=== PATIENT | female | born 1945 | race Caucasian/White ===

== ENCOUNTER → 2018-05-08 09:51 | Outpatient (CLI) | payer MEDICARE, SELFPAY ==
--- NOTE | 2018-05-08 09:57 | XR_ITS ---
XR DEXA axial skeleton HISTORY: ITS.REASON: OSTEOPOROSIS ORDERING PHYSICIAN: Sriram Ramirez PATIENT AGE: 73 years COMPARISON: 04/11/2016 FINDINGS: The BMD measured at the left femoral neck is .706 g/cm squared with a T score of -2.4. This is considered Osteopenic according to the World Health Organization criteria. Fracture risk is Moderate. Treatment is advised. The hip density has decreased by 0.6% compared to the previous exam. IMPRESSION: Osteopenia with moderate fracture risk. Recommend follow-up exam May 2020
== END ==
PROVIDERS: PCP Internal Medicine Adolescent Medicine; Visit Provider Internal Medicine Nephrology
DX: M81.0 Age-related osteoporosis without current pathological fracture (principal)
CPT/HCPCS: 77080

== ENCOUNTER → 2020-06-08 10:24 | Outpatient (CLI) | payer MEDICARE, SELFPAY ==
--- NOTE | 2020-06-08 10:28 | XR_ITS ---
PROCEDURE: XR DEXA AXIAL SKELETON CLINICAL HISTORY: OSTEOPOROSIS COMPARISON: CR DEXAAX XR DEXA axial skeleton from 05/08/2018 FINDINGS: The right hip BMD is 0.548 with a T-score of -2.7. The left hip BMD is 0.613 with a T-score of -2.1. The right forearm BMD is 0.532 with a T-score of -2.7. Previously the lowest density was in the left femoral neck with T-score of -2.4. Previously the radius 33 percent T-score was -1.5. The bone density is such that less compared to the previous exam IMPRESSION: This patient is considered osteoporotic according to the World Health Organization criteria. Fracture risk is high. Treatment is advised. Based on these results a follow-up exam is recommended in 1 year. Dictated by: Moy Griffin MD 06/09/2020 08:07 Moy Griffin MD in [place] 06/09/2020 08:07
== END ==
PROVIDERS: PCP Internal Medicine Adolescent Medicine; Visit Provider Internal Medicine Nephrology
DX: M81.0 Age-related osteoporosis without current pathological fracture (principal)
CPT/HCPCS: 77080

== ENCOUNTER → 2020-06-13 10:17 | Outpatient (CLI) | payer MEDICARE, SELFPAY ==
[2020-06-13 12:34] LABS: Coronavirus 19 IgG Antibody Negative (Negative); Coronavirus 19 IgM Antibody Negative (Negative)
== END ==
PROVIDERS: Visit Provider Internal Medicine Gastroenterology
DX: Z01.89 Encounter for other specified special examinations (principal); Z12.11 Encounter for screening for malignant neoplasm of colon
CPT/HCPCS: 36415; 86328

== ENCOUNTER 2020-06-15 11:27 | Day surgery (SDC) | payer MEDICARE, SELFPAY ==
[2020-06-09 13:45] VITALS: BMI 24.2
[2020-06-15] VITALS (7 sets, daily range): BP systolic 120–162; BP diastolic 65–87; PULSE 67–77; RESP 18; TEMP 36.3–36.4; O2SAT 94–95
--- NOTE | 2020-06-15 13:23 | P.PN_ITS ---
[facility] Anesthesia Checklist - Structural Data Admitted From: Home Planned Operative Procedure/s: colonoscopy Consent for Planned Operative Procedure(s) Verified: Yes - Airway Assessment C-Spine Mobility Assessed: Yes TMJ Mobility Assessed: Yes Dentition: Good Dentition - Neurological Assessment Level of Consciousness: Awake, Alert, Appropriate - Anesthesia Plan Anesthesia Risk discussed: Yes Anesthesia Plan: Verified ASA Class: III Anesthesia Type: MAC [facility] History I have reviewed the patient's past medical history: Yes Medical History: Reports:: Valvular Heart Disease (mitral) Denies:: Cancer, Diabetes Mellitus Type 1, Diabetes Mellitus Type 2, Internal Pacemaker, MRSA, Seizures *Have you ever received a pneumonia vaccine?: Yes *Have you received a flu vaccine this season?: Yes Anesthesia experience/problems:: none Other Surgeries: No: Pacemaker Amputation: No Fractures: No - *Social History Last grade of school completed: High school graduate Alcohol Intake: never Substance Use Type: denies use *Occupational Status:: retired Household Members: spouse *Travel in the last 8 weeks: None Family Hx:: No significant family history
--- NOTE | 2020-06-15 13:40 | HMH.PROC ---
[facility] Procedure Note Procedure Note:: Colonoscopy Procedure Report: Colonoscopy with cold snare polypectomy Endoscopist: Jh Encarnacion II, MD Referring physician: DHARMESH Lay Date of Procedure: June 15, 2020 Equipment: Olympus 180 variable stiffness pediatric colonoscope Sedation: MAC sedation Indication: Mrs. Amin is a 75-year-old female who is here for follow-up screening/surveillance colonoscopy. She does get some intermittent lower quadrant abdominal pain when she does get constipated. She gets some bloating. She does state that her mother had colon cancer in her 70s. She reports no rectal bleeding or weight loss. Her last colonoscopy in 2008 (Dr. Felipe Sherwood) was normal. Procedure: Prior to the procedure, a history and physical exam was performed, and patient's medications and allergies were reviewed. The risks, benefits and alternatives of the sedation and procedure were discussed with the patient. All questions were answered and informed consent was obtained. The patient was brought to the procedure room. Patient identification and proposed procedure were verified by the physician and the nurse. The patient was placed in a left lateral decubitus position and the scope was passed under direct vision. Throughout the procedure, the patient's blood pressure, pulse, and oxygen saturations were monitored continuously. The colonoscopy was accomplished without difficulty. The patient tolerated the procedure well. Findings: On digital rectal examination there was normal rectal tone. There were no external hemorrhoids. The colonoscope was introduced through the anal canal to the rectum and advanced to the cecum. The ileocecal valve and appendiceal orifice were identified. The scope was advanced a short distance into the ileum which appeared grossly normal. The scope was then withdrawn into the colon. The cecum, ascending and transverse colon and mucosa were grossly normal. There was moderate to marked colonic redundancy. There were 2 colon polyps (descending x1 (4 mm) and sigmoid colon x1 (3 mm)) which were both removed via cold snare polypectomy. There were mildly scattered diverticuli throughout the descending and sigmoid colon (LEFT colon). The rectum itself was normal. Upon retroflexion within the rectum there were grade 1 internal hemorrhoids. The preparation was excellent throughout with Grady Preparation Score of 9. The cecal time was 15 minutes. Impression: 1. Diminutive colonic polyps x2 2. Mild left-sided diverticulosis 3. Moderate colonic redundancy/colonic dysmotility 4. Grade 1 internal hemorrhoids Plan: I am not convinced that the patient will require any further preventive/screening colonoscopy. I will discuss this with the patient and family. I would encourage initiation of a good fiber bowel regimen on a long-term daily maintenance basis.
== END 2020-06-15 14:35 | disposition home or self-care (01) ==
LOC: OUTP 11:28
PROVIDERS: PCP Nurse Practitioner Family; Visit Provider Internal Medicine Gastroenterology
PROC: 0DJD8ZZ Inspection of Lower Intestinal Tract, Via Natural or Artificial Opening Endoscopic (ICD-10-PCS; CPT 45378; principal; 2020-06-15 12:30)
DX: Z12.11 Encounter for screening for malignant neoplasm of colon (principal); K63.5 Polyp of colon; K57.30 Diverticulosis of large intestine without perforation or abscess without bleeding; K64.0 First degree hemorrhoids; Q43.8 Other specified congenital malformations of intestine; I34.9 Nonrheumatic mitral valve disorder, unspecified; Z88.2 Allergy status to sulfonamides; Z88.8 Allergy status to other drugs, medicaments and biological substances; Z79.82 Long term (current) use of aspirin; Z79.899 Other long term (current) drug therapy
CPT/HCPCS: 45385; 88305

== ENCOUNTER → 2020-06-23 08:48 | Outpatient (POV) | payer MEDICARE, SELFPAY | PROVIDERS: Visit Provider Internal Medicine Nephrology | DX: Z00.00 Encounter for general adult medical examination without abnormal findings (principal) ==

== ENCOUNTER → 2021-01-07 11:21 | Outpatient (CLI) | payer MEDICARE, SELFPAY | PROVIDERS: PCP Nurse Practitioner Family; Visit Provider Nurse Practitioner Family | DX: R00.2 Palpitations (principal) | CPT/HCPCS: 93225; 93226 ==

== ENCOUNTER 2021-06-26 18:15 | Emergency (ER) | payer MEDICARE, SELFPAY ==
[2021-06-26] VITALS (11 sets, daily range): BP systolic 92–161; BP diastolic 60–98; PULSE 97–140; RESP 13–22; TEMP 36.9; O2SAT 94–96; BMI 23.3
--- NOTE | 2021-06-26 | ECG_ITS ---
APPROVED REPORT Exam: Resting ECG HR:121 bpm ECG Measurements Heart Rate 121 AXES QRSd 80 QRS -26 QT 326 T 16 QTc 462 Conclusion Atrial fibrillation with rapid ventricular response with premature ventricular or aberrantly conducted complexes Low voltage QRS Abnormal ECG Electronically signed by : Dustin Russell MD 06/27/2021 08:45:57
--- NOTE | 2021-06-26 18:38 | XR_ITS ---
PROCEDURE INFORMATION: Exam: XR Chest Exam date and time: 06/26/2021 6:38 PM Age: 76 years old Clinical indication: Other: A fib; Additional info: A. Fib TECHNIQUE: Imaging protocol: XR of the chest. Views: 2 views. COMPARISON: [facility] CT CHEST W/WO CONTRAST 06/28/2016 9:32 AM FINDINGS: Lungs: In the left lung base there is scarring and atelectasis. No consolidation. Pleural spaces: Unremarkable. No pleural effusion. No pneumothorax. Heart/Mediastinum: Unremarkable. No cardiomegaly. Bones/joints: Unremarkable. IMPRESSION: No acute findings.
[2021-06-26 19:02] LABS: Basophils # 0.2 K/mm3 (0-0.2); Basophils % 2.6 % (0.1-2.0); Eosinophils # 0.3 K/mm3 (0.0-0.4); Eosinophils % 3.3 % (0.1-12.0); Hematocrit 44.9 % (37.0-47.0); Hemoglobin 14.8 g/dL (12.2-16.2); Lymphocytes # 3.6 K/mm3 (0.7-4.5); Mean Corpuscular HGB Conc 32.9 g/dL (31.8-35.4); Mean Corpuscular Hemoglobin 30.4 pg (27.0-31.2); Mean Corpuscular Volume 92.4 fl (81-99); Mean Platelet Volume 8.2 fl (7.4-10.4); Monocytes # 0.4 K/mm3 (0.1-1.0); Monocytes % 5.7 % (1.7-9.3); Neutrophils # 3.1 K/mm3 (1.8-7.8); Neutrophils % 40.4 % (37.0-80.0); Platelet Count 319 K/mm3 (142-424); Red Blood Count 4.86 M/mm3 (4.20-5.40); Red Cell Distribution Width 13.6 % (11.5-17.5); White Blood Count 7.6 K/mm3 (4.8-10.8)
[2021-06-26 19:17] LABS: Chloride 108 mmol/L (98-107)
[2021-06-26 19:18] LABS: Potassium 4.1 mmoL/L (3.5-5.1); Sodium 143 mmol/L (136-145)
[2021-06-26 19:20] LABS: Blood Urea Nitrogen 12 mg/dl (7-17)
[2021-06-26 19:21] LABS: Alanine Aminotransferase 18 U/L (12-78); Albumin Level 4.1 g/dl (3.5-5.0); Albumin/Globulin Ratio 1.3 (1.1-1.8); Alkaline Phosphatase 83 U/L (38-126); Anion Gap 15.1 mEq/L (5-15); Aspartate Amino Transferase 30 U/L (14-36); Calcium 9.6 mg/dl (8.4-10.2); Carbon Dioxide 24 mmol/L (22.0-30.0); Creatinine Clearance Estimated 45 mL/min (50-200); Estimated Glomerular Filt Rate 81 ml/min (>60); GFR (African American) 98 ML/MIN (>60); Globulin 3.1 g/dL (1.3-3.2); Glucose 107 mg/dl (74-100); Total Protein,Serum 7.2 g/dl (6.3-8.2)
[2021-06-26 19:22] LABS: Bilirubin,Total 0.1 mg/dl (0.2-1.3)
[2021-06-26 19:41] LABS: Troponin I < 0.01 ng/ml (0.00-0.034)
[2021-06-26 20:12] LABS: Phosphorous 3.9 mg/dl (2.5-4.5)
--- NOTE | 2021-06-26 20:24 | HMH.EDGENADL ---
ED Disposition Clinical Impression: Atrial fibrillation Qualifiers: Atrial fibrillation type: paroxysmal Qualified Code(s): I48.0 - Paroxysmal atrial fibrillation Disposition: Home, Self-Care Condition on Discharge: Fair Instructions: DI for Atrial Fibrillation Additional Instructions: You have been evaluated for palpitations, diagnosed with atrial fibrillation. It is very important that you continue taking Xarelto and flecainide as prescribed. Also continue taking your antihypertensive medication, metoprolol. 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 Return to the emergency department at once for any new or worsening symptoms, chest pain, shortness of breath, other concerns. Prescriptions: Cetirizine HCl 10 mg PO DAILY #30 tab Transmission Status: Pending to [facility] Referrals: Dustin Russell MD [Primary Care Provider] - Time of Disposition: 00:19 - Critical Care Critical Care Time: No Attestation: On 06/26/21, the high probability of a clinically significant, sudden or life threatening deterioration of the following system(s) required my full and direct attention, intervention and personal management. The time I documented below is in addition to time spent performing reported procedures but includes the following listed in this critical care notation. Medical Decision Making - Medical Records Medical records reviewed: Yes: I reviewed the patient's medical records. - Ari Inquiry Pt receiving controlled substance: No Vital Signs: 06/26/21 18:15 06/26/21 19:19 06/26/21 19:31 Temperature 98.4 F Temperature Source Oral Pulse Rate 99 H 132 H Pulse Rate [Right Radial] 135 H Respiratory Rate 13 20 20 Blood Pressure 121/78 116/80 Blood Pressure [Right Arm] 161/91 H Blood Pressure Mean 92 93 Blood Pressure Mean [Right Arm] 114 Blood Pressure Source Blood Pressure Source [Right Arm] Automatic Cuff Blood Pressure Position Blood Pressure Position [Right Arm] Sitting 02 Sat by Pulse Oximetry 95 95 96 Oxygen Delivery Method Room Air 06/26/21 20:10 06/26/21 20:31 06/26/21 20:50 Temperature Temperature Source Pulse Rate 120 H 121 H 137 H Pulse Rate [Right Radial] Respiratory Rate 18 18 Blood Pressure 130/98 H 116/85 116/85 Blood Pressure [Right Arm] Blood Pressure Mean 108 99 Blood Pressure Mean [Right Arm] Blood Pressure Source Automatic Cuff Blood Pressure Source [Right Arm] Blood Pressure Position Sitting Blood Pressure Position [Right Arm] 02 Sat by Pulse Oximetry 95 94 L Oxygen Delivery Method 06/26/21 21:01 06/26/21 21:32 06/26/21 22:20 Temperature Temperature Source Pulse Rate 114 H 140 H 116 H Pulse Rate [Right Radial] Respiratory Rate 20 16 22 Blood Pressure 109/74 L 92/64 L 113/65 Blood Pressure [Right Arm] Blood Pressure Mean 85 73 Blood Pressure Mean [Right Arm] Blood Pressure Source Blood Pressure Source [Right Arm] Blood Pressure Position Blood Pressure Position [Right Arm] 02 Sat by Pulse Oximetry 95 96 94 L Oxygen Delivery Method 06/26/21 23:00 06/26/21 23:30 Temperature Temperature Source Pulse Rate 130 H 97 H Pulse Rate [Right Radial] Respiratory Rate 17 22 Blood Pressure 121/87 107/60 L Blood Pressure [Right Arm] Blood Pressure Mean Blood Pressure Mean [Right Arm] Blood Pressure Source Blood Pressure Source [Right Arm] Blood Pressure Position Blood Pressure Position [Right Arm] 02 Sat by Pulse Oximetry 95 95 Oxygen Delivery Method - Lab Data Lab Results 06/26/21 18:54: WBC 7.6, RBC 4.86, Hgb 14.8, Hct 44.9, MCV 92.4, MCH 30.4, MCHC 32.9, RDW 13.6, Plt Count 319, MPV 8.2, Neut % (Auto) 40.4, Lymph % (Auto) 48.0, [place] % (Auto) 5.7, Eos % (Auto) 3.3, Baso % (Auto) 2.6 H, Neut # (Auto) 3.1, Lymph # (Auto) 3.6, [place] # (Auto) 0.4, Eos # (Auto) 0.3, Baso # (Auto) 0.2 06/26/21 18:54: Sodium 143, Potassium 4.1, Chlo
[2021-06-26 20:56] LABS: Thyroid Stimulating Hormone 2.66 uIU/mL (0.465-4.68)
--- NOTE | 2021-06-26 21:11 | PC.NURSE ---
SPOKE WITH JOHN DON: NEED FOR TROPONIN REDRAW. WILL BE DOWN TO COLLECT.
[2021-06-26 22:09] LABS: Troponin I < 0.01 ng/ml (0.00-0.034)
[2021-06-27 00:19] VITALS: BP 126/88; PULSE 113; RESP 17; TEMP 36.2; O2SAT 98
--- NOTE | 2021-06-27 00:24 | PC.NURSE ---
addendum to discharge: prescribed zyrtec
== END 2021-06-27 00:31 | disposition home or self-care (01) ==
PROVIDERS: Emergency Medicine; Emergency Provider Emergency Medicine; PCP Internal Medicine Adolescent Medicine
DX: I48.0 Paroxysmal atrial fibrillation (principal); R00.2 Palpitations; I10 Essential (primary) hypertension; Z88.2 Allergy status to sulfonamides; Z88.8 Allergy status to other drugs, medicaments and biological substances
CPT/HCPCS: 36415; 71046; 80053; 83735; 84100; 84443; 84484; 85025; 93005; 96375; 99283

== ENCOUNTER → 2021-07-13 09:23 | Outpatient (CLI) | payer MEDICARE, SELFPAY ==
--- NOTE | 2021-07-13 09:26 | XR_ITS ---
PROCEDURE: XR DEXA AXIAL SKELETON CLINICAL HISTORY: OSTEOPOROSIS COMPARISON: CR DEXAAX XR DEXA axial skeleton from 05/08/2018 FINDINGS: The right hip BMD is 0.533 with a T-score of -2.8. The left hip BMD is 0.673 with a T-score of -2.2. The lumbar spine BMD is 1.036 with a T-score of -0.1. Radius 33 percent is 0.549 with T-score of -2.4. Previously the lowest density was at the left femoral neck with a T-score of -2.4 IMPRESSION: This patient is considered osteoporotic according to the World Health Organization criteria. Fracture risk is high. Treatment is advised. Based on these results a follow-up exam is recommended in 1 year. Dictated by: Moy Griffin MD 07/13/2021 12:24 Moy Griffin MD in [place] 07/13/2021 12:24
== END ==
PROVIDERS: PCP Internal Medicine Adolescent Medicine; Visit Provider Internal Medicine Nephrology
DX: M81.0 Age-related osteoporosis without current pathological fracture (principal)
CPT/HCPCS: 77080

== ENCOUNTER → 2021-08-09 12:38 | Outpatient (POV) | payer MEDICARE, SELFPAY | PROVIDERS: Visit Provider Internal Medicine Nephrology | DX: Z00.00 Encounter for general adult medical examination without abnormal findings (principal) ==

== ENCOUNTER → 2022-07-15 08:56 | Outpatient (CLI) | payer MEDICARE, SELFPAY ==
--- NOTE | 2022-07-15 09:02 | XR_ITS ---
FINAL REPORT TECHNIQUE: Bone densitometry calculations of the lumbar spine and left hip were obtained. CLINICAL HISTORY: . osteoporosis COMPARISON: 06/08/2020 FINDINGS: Using L1-4, the bone mineral density of the spine is 1 1.033 g/cm2, corresponding to T-score of the -0.1. Using the left hip, the bone mineral density of the femoral neck is 0.691 g/cm2, was 0.613 corresponding to a T-score of -2.1, was -2.0. Using the right hip, the bone mineral density of the femoral neck is 0.547 g/cm2, was 0.548 corresponding to a T-score of -2.7, was -2.7. Using the 1/3 radius, the bone mineral density is 0.507 g/cm2, was 0.532 corresponding to a T-score of -3.1, was -2.7. NOTE: T-score: Standard deviation compared with peak bone mass of young adult mean. *Following the recommendations of the International Society of Bone densitometry, classification of hip BMD is based on the lower of two T-scores; total hip or femoral neck. IMPRESSION: Diminished bone mineral density of the right hip and 1/3 radius consistent with osteoporosis. Diminished bone or neural density of the left hip consistent with osteopenia. Normal bone mineral density of the lumbar spine which is likely falsely elevated secondary to hypertrophic change. FRAX not reported because some of the T-scores are at or below -2.5. Reviewed, Interpreted and Dictated by Sriram Gonzalez MD Transcribed by Concetta Andrew Authenticated and [facility]
== END ==
PROVIDERS: PCP Internal Medicine Adolescent Medicine; Visit Provider Internal Medicine Nephrology
DX: M81.0 Age-related osteoporosis without current pathological fracture (principal)
CPT/HCPCS: 77080

== ENCOUNTER → 2022-09-22 16:25 | Outpatient (CLI) | payer MEDICARE, SELFPAY ==
[2022-09-22 18:16] LABS: Albumin Level 4.1 g/dl (3.5-5.0); Anion Gap 7.7 mEq/L (5-15); Blood Urea Nitrogen 14 mg/dl (7-17); Calcium 9.4 mg/dl (8.4-10.2); Carbon Dioxide 30 mmol/L (22.0-30.0); Chloride 103 mmol/L (98-107); Estimated Glomerular Filt Rate 60 ml/min (>60); GFR (African American) 73 ML/MIN (>60); Glucose 74 mg/dl (74-100); Phosphorous 3.9 mg/dl (2.5-4.5); Potassium 4.7 mmoL/L (3.5-5.1); Sodium 136 mmol/L (136-145)
[2022-09-27 16:39] LABS: Tandem-R Ostase 15.4 ug/L (.)
[2022-09-29 21:00] LABS: C-Telopeptide Serum 228 pg/mL (.)
== END ==
PROVIDERS: PCP Internal Medicine Adolescent Medicine; Visit Provider Internal Medicine Nephrology
DX: M81.0 Age-related osteoporosis without current pathological fracture (principal)
CPT/HCPCS: 36415; 80069; 82306; 82523; 84080

== ENCOUNTER → 2022-10-03 09:59 | Outpatient (POV) | payer MEDICARE, SELFPAY | PROVIDERS: Visit Provider Internal Medicine Nephrology | DX: Z00.00 Encounter for general adult medical examination without abnormal findings (principal) ==

== ENCOUNTER 2022-11-27 23:42 | Inpatient (IN) | payer MEDICARE, SELFPAY ==
[2022-11-27 23:42] VITALS: BP 150/70; PULSE 72; RESP 17; TEMP 37.2; O2SAT 92; BMI 22.1
[2022-11-27 23:48] VITALS: BMI 22.3
--- NOTE | 2022-11-27 23:49 | XR_ITS ---
PROCEDURE INFORMATION: Exam: XR Chest Exam date and time: 11/28/2022 12:08 AM Age: 77 years old Clinical indication: Injury or trauma; Fall TECHNIQUE: Imaging protocol: Radiologic exam of the chest. Views: 1 view. COMPARISON: CR XR CHEST 2V 06/26/2021 6:52 PM FINDINGS: Lungs: Normal pulmonary vessels. Minimal patchy density left lower lobe likely atelectasis. Pleural spaces: Unremarkable. No pleural effusion. No pneumothorax. Heart/Mediastinum: Cardiac silhouette is normal. Pacer wires. Bones/joints: Unremarkable. IMPRESSION: 1. Cardiac silhouette is normal. Pacer wires. 2. Normal pulmonary vessels. 3. Minimal patchy density left lower lobe likely atelectasis.
--- NOTE | 2022-11-27 23:49 | XR_ITS ---
PROCEDURE INFORMATION: Exam: XR Left Hip Exam date and time: 11/28/2022 12:08 AM Age: 77 years old Clinical indication: Injury or trauma; Fall TECHNIQUE: Imaging protocol: Radiologic exam of the left hip. Views: 2 or 3 views hip with pelvis when performed. COMPARISON: No relevant prior studies available. FINDINGS: Bones/joints: Displaced left femoral neck fracture. Spine fixation hardware. Soft tissues: Unremarkable. IMPRESSION: Displaced left femoral neck fracture.
--- NOTE | 2022-11-27 23:49 | CT_ITS ---
PROCEDURE INFORMATION: Exam: CT Cervical Spine Without Contrast Exam date and time: 11/28/2022 12:11 AM Age: 77 years old Clinical indication: Injury or trauma; Fall TECHNIQUE: Imaging protocol: Computed tomography of the cervical spine without contrast. Radiation optimization: All CT scans at this facility use at least one of these dose optimization techniques: automated exposure control; mA and/or kV adjustment per patient size (includes targeted exams where dose is matched to clinical indication); or iterative reconstruction. REPORTING DATA: Count of CT and Cardiac NM exams in prior 12 months: This patient has received 2 known CTs and 0 known cardiac nuclear medicine studies in the 12 months prior to the current study. COMPARISON: NECKWWO CT SOFT TISS.NECK W/WO CONT 01/19/2016 1:17 PM FINDINGS: Bones/joints: No acute fracture. Facets are normally aligned. Multilevel degenerative facet arthropathy. Straightening of the normal cervical lordosis. Multilevel degenerative disc disease, most notable at C5-C6 and C6-C7. No significant central canal stenosis. Lungs: No acute findings in the visualized lung apices. Pleural spaces: Persistent apical pleural thickening on the right. Soft tissues: No acute findings. IMPRESSION: 1. No acute findings. 2. Multilevel degenerative changes.
--- NOTE | 2022-11-27 23:49 | CT_ITS ---
PROCEDURE INFORMATION: Exam: CT Head Without Contrast Exam date and time: 11/28/2022 12:08 AM Age: 77 years old Clinical indication: Injury or trauma; Fall TECHNIQUE: Imaging protocol: Computed tomography of the head without contrast. Radiation optimization: All CT scans at this facility use at least one of these dose optimization techniques: automated exposure control; mA and/or kV adjustment per patient size (includes targeted exams where dose is matched to clinical indication); or iterative reconstruction. REPORTING DATA: Count of CT and Cardiac NM exams in prior 12 months: This patient has received 2 known CTs and 0 known cardiac nuclear medicine studies in the 12 months prior to the current study. COMPARISON: NECKWWO CT SOFT TISS.NECK W/WO CONT 01/19/2016 1:17 PM FINDINGS: Brain: Age related atrophic changes in the brain. No mass effect or midline shift. No intracranial hemorrhage. No intracranial edema. No evidence of acute territorial ischemia. No significant white matter disease. Cerebral ventricles: No ventriculomegaly. Paranasal sinuses: No acute findings. No fluid levels. Mastoid air cells: No significant mastoid effusion. Bones/joints: No acute fracture. Soft tissues: No acute findings. IMPRESSION: No acute intracranial findings.
[2022-11-27 23:58] LABS: Basophils # 0.1 K/mm3 (0-0.2); Basophils % 1.2 % (0.1-2.0); Chloride 104 mmol/L (98-107); Eosinophils # 0.2 K/mm3 (0.0-0.4); Eosinophils % 2.2 % (0.1-12.0); Hematocrit 42.8 % (37.0-47.0); Lymphocytes # 3.2 K/mm3 (0.7-4.5); Lymphocytes % 41.5 % (10-50); Mean Corpuscular HGB Conc 32.8 g/dL (31.8-35.4); Mean Corpuscular Hemoglobin 29.5 pg (27.0-31.2); Mean Platelet Volume 7.9 fl (7.4-10.4); Monocytes # 0.4 K/mm3 (0.1-1.0); Monocytes % 5.8 % (1.7-9.3); Neutrophils # 3.8 K/mm3 (1.8-7.8); Neutrophils % 49.4 % (37.0-80.0); Platelet Count 277 K/mm3 (142-424); Red Blood Count 4.75 M/mm3 (4.20-5.40); Red Cell Distribution Width 14.1 % (11.5-17.5); Sodium 138 mmol/L (136-145); White Blood Count 7.7 K/mm3 (4.8-10.8)
[2022-11-27 23:59] LABS: Potassium 3.6 mmoL/L (3.5-5.1)
[2022-11-28] VITALS (11 sets, daily range): BP systolic 99–150; BP diastolic 45–98; PULSE 60–80; RESP 16–20; TEMP 36.6–37.2; O2SAT 89–97; BMI 22.9
[2022-11-28 00:01] LABS: Alanine Aminotransferase 27 U/L (12-78); Albumin Level 4.3 g/dl (3.5-5.0); Albumin/Globulin Ratio 1.4 (1.1-1.8); Alkaline Phosphatase 106 U/L (38-126); Anion Gap 9.6 mEq/L (5-15); Aspartate Amino Transferase 47 U/L (14-36); Bilirubin,Total 0.6 mg/dl (0.2-1.3); Blood Urea Nitrogen 20 mg/dl (7-17); Carbon Dioxide 28 mmol/L (22.0-30.0); Creatinine Clearance Estimated 42 mL/min (50-200); Estimated Glomerular Filt Rate 53 ml/min (>60); GFR (African American) 65 ML/MIN (>60); Globulin 3.1 g/dL (1.3-3.2); Total Protein,Serum 7.4 g/dl (6.3-8.2)
[2022-11-28 00:02] LABS: Calcium 9.4 mg/dl (8.4-10.2); Glucose 112 mg/dl (74-100)
--- NOTE | 2022-11-28 00:04 | CT_ITS ---
PROCEDURE INFORMATION: Exam: CT Left Lower Extremity Without Contrast, Hip Exam date and time: 11/28/2022 12:14 AM Age: 77 years old Clinical indication: Injury or trauma; Fall TECHNIQUE: Imaging protocol: CT of the left lower extremity without contrast was performed. Exam focused on the hip. Radiation optimization: All CT scans at this facility use at least one of these dose optimization techniques: automated exposure control; mA and/or kV adjustment per patient size (includes targeted exams where dose is matched to clinical indication); or iterative reconstruction. REPORTING DATA: Count of CT and Cardiac NM exams in prior 12 months: This patient has received 2 known CTs and 0 known cardiac nuclear medicine studies in the 12 months prior to the current study. COMPARISON: CR XR HIP LT 2-3V W/PELVIS 11/28/2022 12:08 AM FINDINGS: Bones/joints: Displaced left femoral neck fracture. Soft tissues: Normal. Reproductive: Calcified fibroid IMPRESSION: Displaced left femoral neck fracture.
[2022-11-28 00:27] LABS: Coronavirus 19, PCR Not Detected (NotDetected); Influenza A, PCR Not Detected (NotDetected); Influenza B, PCR Not Detected (NotDetected)
--- NOTE | 2022-11-28 00:32 | HMH.EDFALL ---
Discharge Plan Disposition Patient Disposition: Admitted As Inpatient Chief Complaint: Fall Prescriptions Prescriptions: No Action cetirizine 10 MG tablet 10 mg PO DAILY Qty: 30 0RF atorvastatin 20 MG tablet 20 mg PO HS meloxicam 15 MG tablet 15 mg PO DAILY amlodipine 5 MG tablet 2.5 mg PO DAILY aspirin 81 MG tablet,delayed release (DR/EC) 81 mg PO DAILY esomeprazole magnesium 40 MG capsule,delayed release(DR/EC) 40 mg PO DAILY levothyroxine 125 MCG tablet 125 mcg PO DAILY cholecalciferol (vitamin D3) 50 MCG tablet 25 mcg PO DAILY cyanocobalamin (vitamin B-12) 5,000 MCG tablet,disintegrating 1,000 mcg PO DAILY Referrals Follow up/Referrals: Dustin Russell MD [Primary Care Provider] - See instructions Clinical Impressions Clinical Impression: Closed hip fracture, Atrial fibrillation Discharge ED Provider: Albaro (ED)Lex HPI General Chief Complaint: Fall Stated Complaint: fall Time Seen by Provider: 11/28/22 00:32 Mode of Arrival: EMS Source of Information: Patient, EMS and Medical Record Limitations: Physical Limitations Description of Symptoms (Recalled from ER Triage Doc. by RN): pt to ED with pain to left hip after falling onto her stairs while trying to bring water to her dogs. pt reports she missed the last stair and fell onto her back. pt denies any head/neck injury or LOC. pt does take eliquis daily. History of Present Illness HPI Narrative: trip type fall with acute lt hip injury w/o loc - has hx of a fib and on eliquis and last dose monday am 0900- also has pacemaker for gricelda/tachy syndrome complaint: fall Onset (ago): hour(s) Fall from: standing Fall witnessed: no Place fall occurred: home Loss of consciousness: none Prolonged down time: no Context: tripped/slipped Location of injury - extremities: Left: thigh Severity: moderate Related Data Home Medications Medication Instructions Recorded Confirmed amlodipine 5 mg tablet 2.5 mg PO DAILY bp 06/09/20 06/09/20 aspirin 81 mg tablet,delayed 81 mg PO DAILY Blood thinner 06/09/20 06/09/20 release atorvastatin 20 mg tablet 20 mg PO HS Cholesterol 06/09/20 06/09/20 cholecalciferol (vitamin D3) 50 25 mcg PO DAILY Supplement 06/09/20 06/09/20 mcg (2,000 unit) tablet cyanocobalamin (vitamin B-12) 1,000 mcg PO DAILY Supplement 06/09/20 06/09/20 5,000 mcg disintegrating tablet esomeprazole magnesium 40 mg 40 mg PO DAILY ACID REFLUX' 06/09/20 06/09/20 capsule,delayed release levothyroxine 125 mcg tablet 125 mcg PO DAILY DAILY 06/09/20 06/09/20 meloxicam 15 mg tablet 15 mg PO DAILY Arthritis 06/09/20 06/09/20 Previous Rx's Medication Instructions Recorded cetirizine 10 mg tablet 10 mg PO DAILY #30 tabs 06/27/21 Allergies Allergy/AdvReac Type Severity Reaction Status Date / Time diclofenac Allergy Intermediate Rash Verified 06/09/20 13:46 phenobarbital [PHENOBARBITAL] Allergy Unknown Verified 06/26/21 20:21 Sulfa (Sulfonamide Allergy Unknown Verified 06/09/20 13:46 Antibiotics) [facility] Disclaimer: The information contained in this section may have been updated after the patient was seen, as this information can be updated by other users. Social History Smoking Status: Never smoker alcohol intake: never substance use type: denies use current occupational status: retired Travel in the last 8 weeks: None household members: spouse caffeine: No ROS Obtained: Yes All systems reviewed & no additional complaints except as documented Physical Exam General General appearance: alert Head Head exam: normocephalic Eye Eye exam: Present PERRL and EOMI ENT ENT exam: Present mucous membranes moist Neck Neck exam: Absent trachea midline Chest Chest inspection: Present normal inspection Respiratory Respiratory exam: Absent respiratory distress Cardiovascular Cardiovascular exam: Present regular rate, systolic murmur and +S4
[2022-11-28 00:37] LABS: Microscopic, Urine URINE MICROSCOPIC (MICROSCOPIC)
[2022-11-28 00:46] LABS: Appearance,Urine CLEAR (Clear); Bilirubin,Urine Negative (Negative); Blood, Urine Negative (Negative); Color,Urine YELLOW (Yellow); Glucose,Urine (UA) Negative (Negative); Ketones,Urine Negative (Negative); Leukocyte Esterase,Urine Negative (Negative); Nitrate,Urine Negative (Negative); PH,Urine 5.5 (5.0-8.5); Protein,Urine Negative (Negative); Urobilinogen,Urine 0.2 EU/dl (0.2)
--- NOTE | 2022-11-28 00:50 | PC.NURSE ---
Dr. Irvin at
--- NOTE | 2022-11-28 00:51 | PC.NURSE ---
Dr. Arthur pagegonzález
[2022-11-28 01:20] LABS: Bacteria,Urine Trace /lpf; Calcium Oxalate Crystals,Urine Trace /lpf; Squamous Epithelial Cell,Urine Occasional #/hpf (0-5)
--- NOTE | 2022-11-28 01:37 | ECG_ITS ---
APPROVED REPORT Exam: Resting ECG HR:66 bpm ECG Measurements Heart Rate 66 AXES OR 202 P 170 QRSd 94 QRS 3 QT 408 T 41 QTc 421 Conclusion ELECTRONIC ATRIAL PACEMAKER LOW QRS VOLTAGE IN PRECORDIAL LEADS [QRS DEFLECTION < 1.0 mV IN CHEST LEADS] ABNORMAL RHYTHM ECG UNCONFIRMED REPORT Electronically signed by : Dustin Russell MD 11/29/2022 03:05:25
--- NOTE | 2022-11-28 01:38 | PC.NURSE ---
fortunato on phone with hospitalist
--- NOTE | 2022-11-28 01:45 | PC.NURSE ---
Pt assigned to room 211 at this time
--- NOTE | 2022-11-28 02:12 | PC.NURSE ---
PT ARRIVED TO FLOOR AT THIS TIME
--- NOTE | 2022-11-28 04:26 | EXP.HP ---
History of Present Illness *Admission Date: 11/28/22 *Reason for visit:: Fall *History of present illness: This is a 77-year-old female with past medical history of atrial fibrillation on Eliquis presents emergency department today with complaints of left hip pain after mechanical fall. She reports missing a step striking her left hip. She reports immediate pain and inability to ambulate afterwards. She denies any chest pain, shortness of breath, dizziness or palpitations prior to the fall. She reports taking her last dose of Eliquis at 9 AM Monday morning. Trauma work-up negative except for left Displaced femoral neck fracture. She will be admitted to the hospital service for orthopedics consultation. [facility] Disclaimer: The information contained in this section may have been updated after the patient was seen, as this information can be updated by other users. Medical History GERD (gastroesophageal reflux disease) Osteoarthritis Osteoporosis Pacemaker Family History (Updated 11/28/22 @ 02:54 by Darlene Mathew RN) Afib Pacemaker Social History (Updated 11/28/22 @ 02:56 by Darlene Mathew RN) Smoking Status: Never smoker alcohol intake: never substance use type: denies use current occupational status: retired Travel in the last 8 weeks: None household members: spouse caffeine: No Review of Systems Review of Systems Review of systems:: pertinent systems reviewed and negative unless documented below *Musculoskeletal Musculoskeletal: Reports deformity and Reports limited range of motion Comments: LLE shortened and rotated Meds Home Medications and Allergies Home Medications Medication Instructions Recorded Confirmed Type atorvastatin 20 mg tablet 20 mg PO HS Cholesterol 06/09/20 11/28/22 History cholecalciferol (vitamin D3) 50 25 mcg PO DAILY Supplement 06/09/20 11/28/22 History mcg (2,000 unit) tablet cyanocobalamin (vitamin B-12) 1,000 mcg PO DAILY Supplement 06/09/20 11/28/22 History 5,000 mcg disintegrating tablet levothyroxine 125 mcg tablet 125 mcg PO DAILY Thyroid 06/09/20 11/28/22 History amlodipine 2.5 mg tablet 2.5 mg PO DAILY High blood pressure 11/28/22 11/28/22 History apixaban 5 mg tablet (Eliquis) 5 mg PO BID Blood thinner - Afib 11/28/22 11/28/22 History citalopram 20 mg tablet 20 mg PO DAILY Anxiety 11/28/22 11/28/22 History flecainide 50 mg tablet 50 mg PO Q12 Heart rhythm 11/28/22 11/28/22 History metoprolol succinate 25 mg 25 mg PO DAILY Heart rate control 11/28/22 11/28/22 History tablet,extended release 24 hr New Prescriptions to Start Prescriptions: Allergies Allergy/AdvReac Type Severity Reaction Status Date / Time diclofenac Allergy Intermediate Rash Verified 06/09/20 13:46 phenobarbital [PHENOBARBITAL] Allergy Unknown Verified 06/26/21 20:21 rivaroxaban [From Xarelto] Allergy Unknown Verified 11/28/22 02:39 Sulfa (Sulfonamide Allergy Unknown Verified 06/09/20 13:46 Antibiotics) Exam Data for Last 24 hours Vital signs and Labs for Last 24 Hours: Temp Pulse Resp BP Pulse Ox 98.3 F 77 18 103/71 L 94 L 11/28/22 02:31 11/28/22 02:31 11/28/22 02:31 11/28/22 02:31 11/28/22 02:31 Laboratory Results - last 24 hr 11/27/22 23:47: WBC 7.7, RBC 4.75, Hgb 14.0, Hct 42.8, MCV 90.0, MCH 29.5, MCHC 32.8, RDW 14.1, Plt Count 277, MPV 7.9, Neut % (Auto) 49.4, Lymph % (Auto) 41.5, [place] % (Auto) 5.8, Eos % (Auto) 2.2, Baso % (Auto) 1.2, Neut # (Auto) 3.8, Lymph # (Auto) 3.2, [place] # (Auto) 0.4, Eos # (Auto) 0.2, Baso # (Auto) 0.1 11/27/22 23:47: Sodium 138, Potassium 3.6, Chloride 104, Carbon Dioxide 28, Anion Gap 9.6, BUN 20 H, Creatinine 1.00, Estimated Creat Clear 42, Estimated GFR 53 L, Est GFR ( Amer) 65, Glucose 112 H, Calcium 9.4, Total Bilirubin 0.6, AST 47 H, ALT 27, Alkaline Phosphatase 106, Total Protein 7.4, Albumin 4.3, Globulin 3.1, Albumin/Globulin Ratio 1.4
[2022-11-28 06:30] LABS: Basophils % 0.2 % (0.1-2.0); Eosinophils # 0.1 K/mm3 (0.0-0.4); Eosinophils % 0.7 % (0.1-12.0); Hematocrit 39.7 % (37.0-47.0); Hemoglobin 12.9 g/dL (12.2-16.2); Lymphocytes # 1.2 K/mm3 (0.7-4.5); Lymphocytes % 9.8 % (10-50); MANUAL DIFFERENTIAL MANUAL DIFFERENTIAL (MANUAL DIFF); Mean Corpuscular HGB Conc 32.6 g/dL (31.8-35.4); Mean Corpuscular Hemoglobin 29.5 pg (27.0-31.2); Mean Corpuscular Volume 90.6 fl (81-99); Mean Platelet Volume 7.9 fl (7.4-10.4); Monocytes # 0.5 K/mm3 (0.1-1.0); Monocytes % 4.2 % (1.7-9.3); Neutrophils # 10.8 K/mm3 (1.8-7.8); Neutrophils % 85.1 % (37.0-80.0); Platelet Count 232 K/mm3 (142-424); Red Blood Count 4.38 M/mm3 (4.20-5.40); Red Cell Distribution Width 14.1 % (11.5-17.5); White Blood Count 12.7 K/mm3 (4.8-10.8)
[2022-11-28 06:39] LABS: Blood Urea Nitrogen 18 mg/dl (7-17); Calcium 8.2 mg/dl (8.4-10.2); Carbon Dioxide 26 mmol/L (22.0-30.0); Chloride 107 mmol/L (98-107); Creatinine Clearance Estimated 44 mL/min (50-200); Estimated Glomerular Filt Rate 69 ml/min (>60); GFR (African American) 84 ML/MIN (>60); Glucose 124 mg/dl (74-100); Potassium 3.6 mmoL/L (3.5-5.1)
[2022-11-28 06:45] LABS: Anion Gap 9.6 mEq/L (5-15); Sodium 139 mmol/L (136-145)
[2022-11-28 07:12] LABS: Lymphocytes % 8 % (10-50); Monocytes % 6 % (2-9); Neutrophils % 86 % (42-76); Platelet Estimate Normal; RBC Morphology Normal; Total Cells Counted 100
--- NOTE | 2022-11-28 08:13 | HMH.PHAINT1 ---
Pharmacy Intervention Comments: Reconciled patient's medications using pharmacy fill history
--- NOTE | 2022-11-28 08:35 | CA_ITS ---
APPROVED REPORT EXAM: Comprehensive 2D, Doppler, and color-flow Echocardiogram Tip Inserter: Marely Little RVT Ht: 5 ft 4 in Wt: 134lbs BSA: 1.65 BP: 103/71 mmHg Indications: PRE-OP LT HIP FX,PACER,GERD,A-FIB TDS-PT FLAT ON BACK 2D Dimensions IVSd 0.97 cm F: 0.6-1.0 LA Volume 47.40 mL PWd 0.66 cm F: 0.6 - 1.0 LA Volume Index 28.73 mL/m2 (M/F) 16-34 LVDd 4.22 cm F: 3.9 - 5.3 LVDs 3.49 cm F: 2.2 - 3.5 LVOT 2.02 cm (M/F) 1.5-2.5 M-Mode Dimensions RVDd 1.86 cm (0.9-2.6) LA Diam 4.13 cm (1.9-4.0) LVDd 4.50 cm (3.5-5.7) Ao Diam 3.05 cm (2.0-3.7) LVDs 2.89 cm (3.5-5.7) IVSd 0.78 cm (0.6-1.1) PWd 0.50 cm (0.6-1.1) EF (Teich) 65.50% FS 35.80% EDV (Teich) 92.40 mL ESV (Teich) 31.90 mL LV Diastology E Decel Time 337.00 (160-240 msec) E/A Ratio 1.0 MED E' 5.30 (< 7 cm/sec) E'/MED E' Ratio 23.04 (>14) LAT E' 5.30 (<10 cm/sec) E/LAT E' Ratio 23.04 (>14) Aortic Valve AO Peak GR. 3.30 mmHg Mitral Valve MV E Max Douglas. 122.00 (40-130 cm/s) MV A Velocity 123.00 (40-130 cm/s) E/A Ratio 1.00 MV Decel. Time 337.00 (160-240 ms) MV Mean Gr. 3.00 (<2mmHg) MV PHT 99.00 ms Pulmonary Valve PV Peak Velocity 77.00 (50-150 cm/s) Tricuspid Valve TR P. Velocity 378.00 cm/s RAP Estimate 10.00 mmHg RVSP 67.10 mmHg Left Ventricle Technically difficult study because of the patient factors and poor acoustic windows. Left atrium is mildly enlarged, left ventricle is normal size mild concentric left ventricular hypertrophy, estimated ejection fraction 50% with no obvious regional wall motion abnormality, endocardial surfaces are poorly visualized, grade 2 diastolic dysfunction seen with tissue Doppler evidence of raise left atrial pressure. Right Ventricle Right atrium and right ventricle are mildly enlarged with normal contractility. Aortic Valve Aortic valve is thickened and calcified without Doppler evidence of aortic stenosis aortic insufficiency. Mitral Valve Anterior mitral leaflet is calcified, there is no mitral stenosis, there is trace mitral regurgitation. Tricuspid Valve Tricuspid valve is grossly normal, there is mild tricuspid regurgitation, calculated right ventricular systolic pressure is 57 mmHg. Pulmonic Valve Pulmonic valve is poorly visualized. Great Vessels Aortic root is normal size. Inferior vena cava is normal size with normal inspiratory collapse. Pericardium No significant pericardial effusion noted. Conclusion 1. Biatrial enlargement, normal left ventricular size, mild concentric left ventricular hypertrophy, estimated ejection fraction 50% with no obvious regional wall motion abnormality, grade 2 diastolic dysfunction seen with tissue Doppler evidence of late left atrial pressure. 2. Mildly enlarged right ventricle with normal contractility. 3. Trace mitral and mild tricuspid regurgitation, calculated right ventricular systolic pressure is 57 mmHg. 4. No significant pericardial effusion noted. 5. Inferior vena cava normal size with normal inspiratory collapse. Electronically signed by : Joaquin Ackerman MD 11/29/2022 06:13:55
--- NOTE | 2022-11-28 11:05 | EXP.ORTH.CON ---
History of Present Illness *Admission Date: 11/28/22 *Reason for visit:: Left hip fracture *History of present illness: Mrs. Amin is a 77-year-old female patient admitted to the acute inpatient service after sustaining a mechanical fall at home yesterday 11/27/2022. She reports that she was walking down a set of stairs when she missed the last step, causing her to fall onto her left side. She reports immediate left hip pain and states that she was not able to ambulate so she was subsequently brought to the [facility] emergency department for further evaluation. X-ray performed in the emergency department demonstrates a left subcapital femoral neck fracture. This morning the patient is lying comfortably in bed and her daughter is present at the bedside. She continues to report left hip pain but states that it is well controlled with as needed pain medication and rest. No history of any distal tingling/numbness. At baseline she states that she ambulates without the use of any walking aids, she denies any antecedent left hip pain. Her past medical history is significant for hypothyroidism and atrial fibrillation on long-term anticoagulation with Eliquis; her last dose was 11/27/2022 at 9 AM. She is a non-smoker. She denies any other symptoms or concerns at this time. [facility] Disclaimer: The information contained in this section may have been updated after the patient was seen, as this information can be updated by other users. Medical History GERD (gastroesophageal reflux disease) Osteoarthritis Osteoporosis Pacemaker Family History (Updated 11/28/22 @ 02:54 by Darlene Mathew RN) Other Afib Pacemaker Social History (Updated 11/28/22 @ 02:56 by Darlene Mathew RN) Smoking Status: Never smoker alcohol intake: never substance use type: denies use current occupational status: retired Travel in the last 8 weeks: None household members: spouse caffeine: No Meds Home Medications and Allergies Home Medications Medication Instructions Recorded Confirmed Type atorvastatin 20 mg tablet 20 mg PO HS Cholesterol 06/09/20 11/28/22 History cholecalciferol (vitamin D3) 50 25 mcg PO DAILY Supplement 06/09/20 11/28/22 History mcg (2,000 unit) tablet cyanocobalamin (vitamin B-12) 1,000 mcg PO DAILY Supplement 06/09/20 11/28/22 History 5,000 mcg disintegrating tablet levothyroxine 125 mcg tablet 125 mcg PO DAILY Thyroid 06/09/20 11/28/22 History amlodipine 2.5 mg tablet 2.5 mg PO DAILY High blood pressure 11/28/22 11/28/22 History apixaban 5 mg tablet (Eliquis) 5 mg PO BID Blood thinner - Afib 11/28/22 11/28/22 History citalopram 20 mg tablet 20 mg PO DAILY Anxiety 11/28/22 11/28/22 History flecainide 50 mg tablet 50 mg PO Q12 Heart rhythm 11/28/22 11/28/22 History metoprolol succinate 25 mg 25 mg PO DAILY Heart rate control 11/28/22 11/28/22 History tablet,extended release 24 hr New Prescriptions to Start Prescriptions: Allergies Allergy/AdvReac Type Severity Reaction Status Date / Time diclofenac Allergy Intermediate Rash Verified 06/09/20 13:46 phenobarbital [PHENOBARBITAL] Allergy Unknown Verified 06/26/21 20:21 rivaroxaban [From Xarelto] Allergy Unknown Verified 11/28/22 02:39 Sulfa (Sulfonamide Allergy Unknown Verified 06/09/20 13:46 Antibiotics) Ortho Exam (Inpt) Vital signs and Labs for Last 24 Hours: Temp Pulse Resp BP Pulse Ox 97.9 F 68 18 99/45 L 91 L 11/28/22 07:52 11/28/22 07:52 11/28/22 07:52 11/28/22 07:52 11/28/22 07:52 Laboratory Results - last 24 hr 11/27/22 23:47: WBC 7.7, RBC 4.75, Hgb 14.0, Hct 42.8, MCV 90.0, MCH 29.5, MCHC 32.8, RDW 14.1, Plt Count 277, MPV 7.9, Neut % (Auto) 49.4, Lymph % (Auto) 41.5, [place] % (Auto) 5.8, Eos % (Auto) 2.2, Baso % (Auto) 1.2, Neut # (Auto) 3.8, Lymph # (Auto) 3.2, [place] # (Auto) 0.4, Eos # (Auto) 0.2, Baso # (Auto) 0.1 11/27/22 23:47: Sodium 13
--- NOTE | 2022-11-28 12:09 | EXP.CARD.CON ---
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 Denies loc. Cardiology asked to consult for surgical clearance. Patient reports good functional capacity at home. Denies hx of chest pain or soa. Treated by [facility] yearly. PAF maintaned on Flecainide, toprol and eliquis. Denies any complaints currently. EKG shows an Apaced rhythm of 66. PFSH [facility] Disclaimer: The information contained in this section may have been updated after the patient was seen, as this information can be updated by other users. Medical History GERD (gastroesophageal reflux disease) Osteoarthritis Osteoporosis Pacemaker Family History (Updated 11/28/22 @ 02:54 by Darlene Mathew RN) Other Afib Pacemaker Social History (Updated 11/28/22 @ 02:56 by Darlene Mathew RN) Smoking Status: Never smoker alcohol intake: never substance use type: denies use current occupational status: retired Travel in the last 8 weeks: None household members: spouse caffeine: No Review of Systems Review of Systems Review of systems:: pertinent systems reviewed and negative unless documented below Constitutional Constitutional: Reports system reviewed and no additional complaints, except as documented *Cardiovascular Cardiovascular: Reports system reviewed and no additional complaints, except as documented *Respiratory Respiratory: Reports system reviewed and no additional complaints, except as documented *Gastrointestinal Gastrointestinal: Reports system reviewed and no additional complaints, except as documented *Neurologic Neurologic: Reports system reviewed and no additional complaints, except as documented and Denies confusion Psychiatric Psychiatric: Reports system reviewed and no additional complaints, except as documented and Denies confusion Exam Data for Last 24 hours Vital signs and Labs for Last 24 Hours: Temp Pulse Resp BP Pulse Ox 97.9 F 68 18 99/45 L 91 L 11/28/22 07:52 11/28/22 07:52 11/28/22 07:52 11/28/22 07:52 11/28/22 07:52 Laboratory Results - last 24 hr 11/27/22 23:47: WBC 7.7, RBC 4.75, Hgb 14.0, Hct 42.8, MCV 90.0, MCH 29.5, MCHC 32.8, RDW 14.1, Plt Count 277, MPV 7.9, Neut % (Auto) 49.4, Lymph % (Auto) 41.5, [place] % (Auto) 5.8, Eos % (Auto) 2.2, Baso % (Auto) 1.2, Neut # (Auto) 3.8, Lymph # (Auto) 3.2, [place] # (Auto) 0.4, Eos # (Auto) 0.2, Baso # (Auto) 0.1 11/27/22 23:47: Sodium 138, Potassium 3.6, Chloride 104, Carbon Dioxide 28, Anion Gap 9.6, BUN 20 H, Creatinine 1.00, Estimated Creat Clear 42, Estimated GFR 53 L, Est GFR ( Amer) 65, Glucose 112 H, Calcium 9.4, Total Bilirubin 0.6, AST 47 H, ALT 27, Alkaline Phosphatase 106, Total Protein 7.4, Albumin 4.3, Globulin 3.1, Albumin/Globulin Ratio 1.4 11/28/22 00:19: SARS-CoV-2 (PCR) Not detected, Influenza A Untype (PCR) Not detected, Influenza Type B (PCR) Not detected 11/28/22 00:27: Urine Color Yellow, Urine Appearance Clear, Urine pH 5.5, Ur Specific [place] 1.020, Urine Protein Negative, Urine Glucose (UA) Negative, Urine Ketones Negative, Urine Blood Negative, Urine Nitrate Negative, Urine Bilirubin Negative, Urine Urobilinogen 0.2, Ur Leukocyte Esterase Negative, Urine RBC None, Urine WBC None, Ur Squamous Epith Cells Occasional, Calcium Oxalate Crystal Trace, Urine Bacteria Trace 11/28/22 06:01: WBC 12.7 H D, RBC 4.38, Hgb 12.9, Hct 39.7, MCV 90.6, MCH 29.5, MCHC 32.6, RDW 14.1, Plt Count 232, MPV 7.9, Neut % (Auto) 85.1 H, Lymph % (Auto) 9.8 L, [place] % (Auto) 4.2, Eos % (Auto) 0.7, Baso % (Auto) 0.2, Neut # (Auto) 10.8 H, Lymph # (Auto) 1.2, [place] # (Auto) 0.5, Eos # (Auto) 0.1, Baso # (Auto) 0.0, To
--- NOTE | 2022-11-28 12:45 | PC.NURSE ---
Patient's O2 sat 88-89% on room air. O2 at 1L applied via nasal cannula. IS provided with patient stated understanding of instructions
--- NOTE | 2022-11-28 16:50 | PC.NURSE ---
Pt alert and oriented. VSS. Morphine and hydrocodone for pain. 1L O2 via nasal cannula applied after analgesics. Hauser output adequate. Plan for left hip hemiarthroplasty tomorrow. Daughter at bedside throughout shift
[2022-11-29] VITALS (18 sets, daily range): BP systolic 86–120; BP diastolic 46–87; PULSE 64–83; RESP 10–18; TEMP 36.7–43; O2SAT 85–95; BMI 23.9; BMI 23.8
--- NOTE | 2022-11-29 04:10 | PC.NURSE ---
NO ACUTE CHANGES SINCE PREVIOUS ASSESSMENT. PT REMAIN ON 1L NASAL CANNULA. LUNG SOUNDS CLEAR. PT HAS C/O PAIN X2 THIS SHIFT. PRN MEDICATION OFFERED ADEQUATE RELIEF. PT IS BEING TURNED REQUESTED. JHA REMAINS IN PLACE. VSS.
[2022-11-29 06:27] LABS: Basophils % 0.4 % (0.1-2.0); Eosinophils # 0.4 K/mm3 (0.0-0.4); Eosinophils % 4.1 % (0.1-12.0); Hematocrit 38.5 % (37.0-47.0); Hemoglobin 12.4 g/dL (12.2-16.2); Lymphocytes # 2.1 K/mm3 (0.7-4.5); Lymphocytes % 22.6 % (10-50); Mean Corpuscular HGB Conc 32.3 g/dL (31.8-35.4); Monocytes # 0.4 K/mm3 (0.1-1.0); Monocytes % 4.3 % (1.7-9.3); Neutrophils # 6.3 K/mm3 (1.8-7.8); Neutrophils % 68.6 % (37.0-80.0); Platelet Count 205 K/mm3 (142-424); Red Blood Count 4.14 M/mm3 (4.20-5.40); White Blood Count 9.2 K/mm3 (4.8-10.8)
[2022-11-29 06:41] LABS: Anion Gap 6.8 mEq/L (5-15); Blood Urea Nitrogen 9 mg/dl (7-17); Calcium 7.9 mg/dl (8.4-10.2); Carbon Dioxide 25 mmol/L (22.0-30.0); Chloride 106 mmol/L (98-107); Creatinine Clearance Estimated 46 mL/min (50-200); Estimated Glomerular Filt Rate 81 ml/min (>60); GFR (African American) 98 ML/MIN (>60); Glucose 104 mg/dl (74-100); Potassium 3.8 mmoL/L (3.5-5.1); Sodium 134 mmol/L (136-145)
--- NOTE | 2022-11-29 11:21 | EXP.ORTH.PN ---
Subjective *Date: 11/29/22 *Time: 14:15 Interval history: Mrs. Amin is a 77-year-old female patient admitted to the inpatient service after sustaining a left subcapital femoral neck fracture. Today she is lying comfortably in bed and her daughter is present at the bedside. She continues report left hip pain as to be expected but states it is well controlled with as needed pain medication and rest. No history of any distal tingling/numbness. She is n.p.o. in preparation for anticipated surgery this afternoon with Dr. Norton. She denies any other symptoms or concerns at this time. Ortho Exam (Inpt) Vital signs and Labs for Last 24 Hours: Temp Pulse Resp BP Pulse Ox 98.7 F 64 17 101/46 L 91 L 11/29/22 07:19 11/29/22 07:19 11/29/22 07:19 11/29/22 07:19 11/29/22 07:19 Laboratory Results - last 24 hr 11/29/22 06:02: WBC 9.2 D, RBC 4.14 L, Hgb 12.4, Hct 38.5, MCV 93.0, MCH 30.0, MCHC 32.3, RDW 14.0, Plt Count 205, MPV 8.0, Neut % (Auto) 68.6, Lymph % (Auto) 22.6, [place] % (Auto) 4.3, Eos % (Auto) 4.1, Baso % (Auto) 0.4, Neut # (Auto) 6.3, Lymph # (Auto) 2.1, [place] # (Auto) 0.4, Eos # (Auto) 0.4, Baso # (Auto) 0.0 11/29/22 06:02: Sodium 134 L, Potassium 3.8, Chloride 106, Carbon Dioxide 25, Anion Gap 6.8, BUN 9 D, Creatinine 0.70, Estimated Creat Clear 46, Estimated GFR 81, Est GFR ( Amer) 98, Glucose 104 H, Calcium 7.9 L Temp Pulse Resp BP Pulse Ox 97.9 F 68 18 99/45 L 91 L 11/28/22 07:52 11/28/22 07:52 11/28/22 07:52 11/28/22 07:52 11/28/22 07:52 Laboratory Results - last 24 hr 11/27/22 23:47: WBC 7.7, RBC 4.75, Hgb 14.0, Hct 42.8, MCV 90.0, MCH 29.5, MCHC 32.8, RDW 14.1, Plt Count 277, MPV 7.9, Neut % (Auto) 49.4, Lymph % (Auto) 41.5, [place] % (Auto) 5.8, Eos % (Auto) 2.2, Baso % (Auto) 1.2, Neut # (Auto) 3.8, Lymph # (Auto) 3.2, [place] # (Auto) 0.4, Eos # (Auto) 0.2, Baso # (Auto) 0.1 11/27/22 23:47: Sodium 138, Potassium 3.6, Chloride 104, Carbon Dioxide 28, Anion Gap 9.6, BUN 20 H, Creatinine 1.00, Estimated Creat Clear 42, Estimated GFR 53 L, Est GFR ( Amer) 65, Glucose 112 H, Calcium 9.4, Total Bilirubin 0.6, AST 47 H, ALT 27, Alkaline Phosphatase 106, Total Protein 7.4, Albumin 4.3, Globulin 3.1, Albumin/Globulin Ratio 1.4 11/28/22 00:19: SARS-CoV-2 (PCR) Not detected, Influenza A Untype (PCR) Not detected, Influenza Type B (PCR) Not detected 11/28/22 00:27: Urine Color Yellow, Urine Appearance Clear, Urine pH 5.5, Ur Specific [place] 1.020, Urine Protein Negative, Urine Glucose (UA) Negative, Urine Ketones Negative, Urine Blood Negative, Urine Nitrate Negative, Urine Bilirubin Negative, Urine Urobilinogen 0.2, Ur Leukocyte Esterase Negative, Urine RBC None, Urine WBC None, Ur Squamous Epith Cells Occasional, Calcium Oxalate Crystal Trace, Urine Bacteria Trace 11/28/22 06:01: WBC 12.7 H D, RBC 4.38, Hgb 12.9, Hct 39.7, MCV 90.6, MCH 29.5, MCHC 32.6, RDW 14.1, Plt Count 232, MPV 7.9, Neut % (Auto) 85.1 H, Lymph % (Auto) 9.8 L, [place] % (Auto) 4.2, Eos % (Auto) 0.7, Baso % (Auto) 0.2, Neut # (Auto) 10.8 H, Lymph # (Auto) 1.2, [place] # (Auto) 0.5, Eos # (Auto) 0.1, Baso # (Auto) 0.0, Total Counted 100, Neutrophils % (Manual) 86 H, Lymphocytes % (Manual) 8 L, Monocytes % (Manual) 6, Platelet Estimate Normal, RBC Morphology Normal 11/28/22 06:01: Sodium 139, Potassium 3.6, Chloride 107, Carbon Dioxide 26, Anion Gap 9.6, BUN 18 H, Creatinine 0.80, Estimated Creat Clear 44, Estimated GFR 69, Est GFR ( Amer) 84 D, Glucose 124 H, Calcium 8.2 L I & O for Labs for Last 24 Hours: Intake & Output 11/26/22 11/27/22 11/28/22 11/29/22 23:59 23:59 23:59 23:59 Intake Total 1000 / 1000 1293 / 1293 Output Total 900 / 900 500 / 500 Balance 100 / 100 793 / 793 Weight 130 lb 134 lb 6 oz 140 lb 3 oz Intake & Output 11/25/22 11/26/22 11/27/22 11/28/22 23:59 23:59 23:59 23:59 Intake Total 0 / 0 Output Total 600 / 600 Balance -600 / -600 Weight 130 lb 134 lb 6 oz Constitutional: Present no a
--- NOTE | 2022-11-29 16:26 | XR_ITS ---
PROCEDURE INFORMATION: Exam: XR Left Hip Exam date and time: 11/29/2022 8:57 PM Age: 77 years old Clinical indication: Screening exam; Post op; Prior surgery; Additional info: S/P left hip hemiarthroplasty TECHNIQUE: Imaging protocol: Radiologic exam of the left hip. Views: 2 or 3 views hip with pelvis when performed. COMPARISON: CT HIP LT WO CON 11/28/2022 12:14 AM FINDINGS: Bones/joints: The patient is status post left hip arthroplasty. There is air noted in the adjacent soft tissues. There is no evidence of hardware loosening or fracture. Soft tissues: See Bones/joints finding. IMPRESSION: Status post left hip arthroplasty with expected postoperative changes.
--- NOTE | 2022-11-29 16:46 | EXP.ACUTE.PN ---
Subjective *Date: 11/29/22 *Time: 17:59 Interval history: Patient's pain is stable. Denies any shortness of breath or chest pain. Ready to proceed with surgery. Currently hungry. No nausea or vomiting. Family at bedside. Updated on plan Medical Exam Vital signs and Labs for Last 24 Hours: Vital Signs Temp Pulse Resp BP Pulse Ox 11/29/22 13:53 98.6 F 70 16 120/63 95 11/29/22 07:19 98.7 F 64 17 101/46 L 91 L 11/29/22 04:00 98.9 F 69 18 112/55 L 91 L 11/28/22 20:00 95 11/28/22 20:00 98.8 F 67 18 116/67 95 Intake and Output 11/29/22 11/29/22 11/29/22 07:59 15:59 23:59 Intake Total 0 / 1293 1293 / 1293 Output Total 500 / 500 0 / 500 0 / 500 Balance -500 / 793 1293 / 793 0 / 793 Intake: Intake, Oral Amount 0 / 0 0 / 0 Intake, Total IV Amount 1293 / 1293 0.9 % Sodium Chloride 1000ML 1, 1293 / 1293 000 ml @ 50 mls/hr IV .Q20H [facility] Rx#:[id number] Output: Output, Urine Amount 500 / 500 0 / 500 0 / 500 Other: Number of Unmeasured Voids 0 0 0 Weight 63.588 kg 63.5 kg Patient Weight 11/29/22 23:59 Weight 63.5 kg Laboratory Results - last 24 hr 11/29/22 06:02: WBC 9.2 D, RBC 4.14 L, Hgb 12.4, Hct 38.5, MCV 93.0, MCH 30.0, MCHC 32.3, RDW 14.0, Plt Count 205, MPV 8.0, Neut % (Auto) 68.6, Lymph % (Auto) 22.6, [place] % (Auto) 4.3, Eos % (Auto) 4.1, Baso % (Auto) 0.4, Neut # (Auto) 6.3, Lymph # (Auto) 2.1, [place] # (Auto) 0.4, Eos # (Auto) 0.4, Baso # (Auto) 0.0 11/29/22 06:02: Sodium 134 L, Potassium 3.8, Chloride 106, Carbon Dioxide 25, Anion Gap 6.8, BUN 9 D, Creatinine 0.70, Estimated Creat Clear 46, Estimated GFR 81, Est GFR ( Amer) 98, Glucose 104 H, Calcium 7.9 L 11/29/22 08:50: Blood Type A Positive, Antibody Screen Negative I & O for Labs for Last 24 Hours: Intake & Output 11/26/22 11/27/22 11/28/22 11/29/22 23:59 23:59 23:59 23:59 Intake Total 1000 / 1000 1293 / 1293 Output Total 900 / 900 500 / 500 Balance 100 / 100 793 / 793 Weight 58.967 kg 60.951 kg 63.5 kg Constitutional: Present no acute distress Head: Present atraumatic and normocephalic Neck: Present normal inspection Respiratory: Present normal respiratory effort; Absent accessory muscle use, rhonchi, wheezes or crackles Cardiac: Present Reg Rate and Rhythm GI: Present soft and normal bowel sounds; Absent distention or tenderness Extremities: Absent edema Comment:: Left leg shorter than right and externally rotated. Tender over left hip. Skin: Present intact; Absent erythema Neuro: Present Grossly Intact, alert, awake, oriented x 3 and moves all extremities Assessment and Plan *Assessment and plan (1) Closed hip fracture: Status: Acute Category: Medical Code(s): S72.009A - Fracture of unspecified part of neck of unspecified femur, initial encounter for closed fracture (2) Atrial fibrillation: Status: Acute Category: Medical Code(s): I48.91 - Unspecified atrial fibrillation (3) Hypothyroidism: Status: Acute Category: Medical Code(s): E03.9 - Hypothyroidism, unspecified Plan 77 yo F with Afib, hypothyroidroid. Fell at home from standing height, sustained left hip fracture. Orthopedics consulted, assisting with care. Plan for surgery today. Closed hip fracture Orthopedics consulted, discussed case today, planning for surgery this afternoon. Resume Eliquis after surgery for DVT prophylaxis and chronic A-fib. PT and OT eval. Family planning to take patient home with home health PT. Case management assisting with placement Multimodal pain medication Atrial fibrillation Pacemaker in place Cardiology consulted for presurgical optimization, average risk for surgery. Okay to proceed Resume Eliquis after surgery Continue flecainide Hypothyroidism Continue home levothyroxine Hypertension Holding amlodipine, blood pressure acceptable at this time Resume Eliquis after surgery Full Code Regular d
--- NOTE | 2022-11-29 19:35 | EXP.ANES.CKL ---
[facility] Disclaimer: The information contained in this section may have been updated after the patient was seen, as this information can be updated by other users. Medical History GERD (gastroesophageal reflux disease) Osteoarthritis Osteoporosis Pacemaker Family History (Updated 11/28/22 @ 02:54 by Darlene Mathew RN) Other Afib Pacemaker Social History (Updated 11/28/22 @ 02:56 by Darlene Mathew RN) Smoking Status: Never smoker alcohol intake: never substance use type: denies use current occupational status: retired Travel in the last 8 weeks: None household members: spouse caffeine: No [facility] Anesthesia Checklist Patient Identification Patient Identification: Arm Band and Verbal (Name & ) Structural Data Admitted From: Inpatient Planned Operative Procedure/s: Left Hemiarthroplasty Consent for Planned Operative Procedure(s) Verified: Yes Verified Documents: Surgical Consent NPO Status Verified Time NPO: 00:00 Chart Verification Results Verified: CBC and BMP Airway Assessment C-Spine Mobility Assessed: Yes TMJ Mobility Assessed: Yes Dentition: Good Dentition Neurological Assessment Level of Consciousness: Awake, Alert and Appropriate Anesthesia Plan Anesthesia Risk discussed: Yes ASA Class: III Anesthesia Type: General
--- NOTE | 2022-11-29 20:53 | EXP.ANES.I ---
[facility] Anesthesia Record Part I Anesthesia Record I Intake, IV Amount: 1,000 Estimated blood loss (mL): 75 Urine output (mL): 300 Blood Pressure: 95/51 SaO2: 92 Pulse Rate: 77 Respiratory Rate: 10 Temperature: 98.6 F Patient is:: Drowsy, Nasal O2 and Oral/Nasal airway Stable to PACU at:: 20:50
--- NOTE | 2022-11-29 21:28 | SUR.PHASEI ---
2111- Radiology at bedside
--- NOTE | 2022-11-29 21:30 | EXP.OP.NOTE ---
Date of procedure: 11/29/22 Pre-op Diagnosis:: Left femoral neck fracture Post-op Diagnosis:: Same Procedure performed:: 98447: Left cemented hip hemiarthroplasty Surgeon:: Monroe Norton JR, MD Retail Warehouse Associate(s):: Sophia Garrett PA-C DRYWALL FINISHER:: Nik Proctor Anesthesia: NEHA Estimated blood loss (mL): 50 Clinical Note:: 77-year-old female fell, sustained a left femoral neck fracture. She was on Eliquis which was held for 48 hours. I had a discussion with her and her family regarding further management, recommended left cemented hip hemiarthroplasty given her history of osteoporosis. After discussion of risk, benefits, alternatives, they were amenable with the plan. We discussed the risk and benefits of surgery. Risks included but were not limited to pain, bleeding, infection, damage to adjacent structures, need for further surgery, wound healing complications, periprosthetic fracture, dislocation, leg length discrepancy, loss of limb, . Patient expressed verbal consent and written consent was obtained for the above procedure. Operative findings:: Hip stable through range of motion, leg lengths within a centimeter of equal. Godwin [employer] Nephew bipolar, cemented stem. Operative note:: Patient was identified in preoperative holding. Operative site was marked in indelible ink. History, physical, consent were reviewed and updated. Patient was surrendered to the anesthesia team, taken to the operative suite. Anesthesia was induced. Patient was then placed in the lateral decubitus position on a well-padded operative table. All bony prominences were padded and an axillary roll was placed. The operative extremity was prepped and draped in the usual sterile fashion. The operative team donned sterile gowns and gloves and a timeout was called. All in attendance agreed regarding the patient's identity, procedure, operative site. Weight-based dose of antibiotics was given prior to incision. A skin maker was then used to mirella all bony prominences. Skin incision was then carried out extending from the greater trochanter in a curvilinear fashion posteriorly across the buttocks. I incised the skin with a scalpel, then using a Bovie dissected through tissues. The fascia shamir was incised utilizing Metzenbaum scissors. This was taken down to the bursa, which was removed utilizing a rongeur. Utilizing a periosteal elevator as well as the sponge, the fat was then freed from the short external rotators of the left hip after these were placed and stretched. The sciatic nerve was protected. Bovie was used to remove the short external rotators from the greater trochanter, which revealed the joint capsule. His were tagged for later repair. The capsule was cleared and incised utilizing a T-shape incision. A fracture hematoma was noted upon entering the joint capsule as well as the femoral neck fracture. A cork screw was then used to remove the fractured femoral head, which was given to the lining scrubber which was sized on the back table. All bony remnants were then removed from the acetabulum and surrounding soft tissue with a rongeur. Acetabulum was then inspected and found to be clear. Attention was then turned to the proximal femur where a cutting tunnel was used to mirella the femur for the femoral neck cut. A sagittal saw was then used to make the femoral cut. Box osteotome was then used to remove the bone from proximal femur. A femoral neck elevator was utilized. Next, attention was turned to broaching. Initially, a small broach was placed, first making efforts to lateralize the broach then the femoral canal. Next, the trial components were inserted consisting of the above-mentioned component sizes. The hip was taken through range of motion and tested to adduction, internal and external rotations as well as with a shuck and a posterior directed force on a flexed hip. It was noted that these size were stable through the range of motion. Next, the trial components were removed and the
--- NOTE | 2022-11-29 22:41 | PC.NURSE ---
Pt BPs 80's/40's systolic. O2 sats maintaining in 80's on 4.5L NC. States we will give 500 ml bolus NS and to place pt on venti mask to maintain 02 sats
--- NOTE | 2022-11-29 22:51 | PC.NURSE ---
Addendum entered by Katie Rivera RN 11/29/22 22:51: postop antibiotic rescheduled by [facility] pharmacy due to pt being in surgery. Unable to give scheduled PO meds until pt is more awake Original Note: post op antibiotic nory
--- NOTE | 2022-11-29 22:56 | PC.NURSE ---
pt placed on venti mask 50%
--- NOTE | 2022-11-29 23:54 | PC.NURSE ---
Pt now awake, alert, and oriented.
--- NOTE | 2022-11-29 23:58 | EXP.EVENT.NO ---
Called to room by primary RNKatie reporting patient lethargic, low oxygen and low blood pressures after returning from surgery. Family at bedside, patient very sleepy, difficult to arouse. Oxygen order placed to titrate to keep oxygen levels 92% or greater. Order for fluid bolus x 1. Monitoring on telemetry. Family reports patient difficult to arouse with any pain medication. Patient improved throughout night, oriented.
[2022-11-30] VITALS (17 sets, daily range): BP systolic 83–132; BP diastolic 48–91; PULSE 66–87; RESP 14–18; TEMP 36.5–37.1; O2SAT 88–97; BMI 23.8
--- NOTE | 2022-11-30 00:35 | PC.NURSE ---
O2 sats maintaining >95%, pt placed on 4L NC
--- NOTE | 2022-11-30 02:10 | EXP.ORTH.PN ---
Subjective *Date: 11/30/22 *Time: 02:10 Interval history: She is doing well after anesthesia, left hip hemiarthroplasty. Ortho Exam (Inpt) Vital signs and Labs for Last 24 Hours: Temp Pulse Resp BP Pulse Ox FiO2 98.2 F 66 16 90/53 L 92 L 50 11/29/22 23:05 11/29/22 23:05 11/29/22 23:05 11/29/22 23:05 11/29/22 23:05 11/29/22 23:05 Laboratory Results - last 24 hr 11/29/22 06:02: WBC 9.2 D, RBC 4.14 L, Hgb 12.4, Hct 38.5, MCV 93.0, MCH 30.0, MCHC 32.3, RDW 14.0, Plt Count 205, MPV 8.0, Neut % (Auto) 68.6, Lymph % (Auto) 22.6, Morton % (Auto) 4.3, Eos % (Auto) 4.1, Baso % (Auto) 0.4, Neut # (Auto) 6.3, Lymph # (Auto) 2.1, Morton # (Auto) 0.4, Eos # (Auto) 0.4, Baso # (Auto) 0.0 11/29/22 06:02: Sodium 134 L, Potassium 3.8, Chloride 106, Carbon Dioxide 25, Anion Gap 6.8, BUN 9 D, Creatinine 0.70, Estimated Creat Clear 46, Estimated GFR 81, Est GFR ( Amer) 98, Glucose 104 H, Calcium 7.9 L 11/29/22 08:50: Blood Type A Positive, Antibody Screen Negative I & O for Labs for Last 24 Hours: Intake & Output 11/27/22 11/28/22 11/29/22 11/30/22 23:59 23:59 23:59 23:59 Intake Total 1000 / 1000 2293 / 2293 Output Total 900 / 900 500 / 1200 700 / 700 Balance 100 / 100 1793 / 1093 -700 / -700 Weight 130 lb 134 lb 6 oz 139 lb 15.896 oz Head: Present normocephalic and atraumatic ENT: Present mucous membranes moist Neck: Present normal inspection Respiratory: Present normal respiratory effort and symmetric chest movement; Absent accessory muscle use or respiratory distress Cardiac: Present Reg Rate and Rhythm and radial pulses present GI: Present soft; Absent distention Rectal (female): Present deferred (female): Present deferred Additional Findings:: Left lower extremity: Dressing clean, dry, intact. Leg lengths grossly symmetric, grossly distally neurovascular intact Assessment and Plan *Assessment and plan (1) Closed hip fracture: Status: Acute Category: Medical Code(s): S72.009A - Fracture of unspecified part of neck of unspecified femur, initial encounter for closed fracture Plan 77-year-old female status post left hip hemiarthroplasty. Weightbearing as tolerated left lower extremity, posterior hip precautions. PT/OT. 23 hours antibiotics. DVT chemoprophylaxis for 5 weeks. Follow-up 2 weeks for wound check and x-rays.
[2022-11-30 07:03] LABS: Basophils % 0.1 % (0.1-2.0); Eosinophils % 0.2 % (0.1-12.0); Hematocrit 40.3 % (37.0-47.0); Hemoglobin 12.4 g/dL (12.2-16.2); Lymphocytes # 0.7 K/mm3 (0.7-4.5); Lymphocytes % 6.3 % (10-50); Mean Corpuscular HGB Conc 30.7 g/dL (31.8-35.4); Mean Corpuscular Hemoglobin 29.3 pg (27.0-31.2); Mean Corpuscular Volume 95.6 fl (81-99); Mean Platelet Volume 8.9 fl (7.4-10.4); Monocytes # 0.4 K/mm3 (0.1-1.0); Monocytes % 3.4 % (1.7-9.3); Neutrophils # 10.2 K/mm3 (1.8-7.8); Neutrophils % 89.9 % (37.0-80.0); Platelet Count 174 K/mm3 (142-424); Red Blood Count 4.22 M/mm3 (4.20-5.40); Red Cell Distribution Width 14.1 % (11.5-17.5); White Blood Count 11.4 K/mm3 (4.8-10.8)
[2022-11-30 07:07] LABS: MANUAL DIFFERENTIAL MANUAL DIFFERENTIAL (MANUAL DIFF)
--- NOTE | 2022-11-30 07:13 | P.PNANES_ITS ---
[facility] Anesthesia Record Part II Anesthesia Record Part II Discharge Time: 21:40 Destination: Surgical Day Care (OP Surgery) PACU nurse assessment reviewed?: Yes Patient Condition:: Good Anesthesia Complications:: None Swallowing reflex intact?: Yes Cyanosis?: No Blood Pressure: 93/54 Pulse Rate: 80 Temperature: 98.6 F Mental Status: Alert & Oriented Pain level:: 0 Nausea and/or vomitting:: None Intake, IV Amount: 0
[2022-11-30 07:16] LABS: Anion Gap 7.1 mEq/L (5-15); Blood Urea Nitrogen 14 mg/dl (7-17); Calcium 7.5 mg/dl (8.4-10.2); Carbon Dioxide 24 mmol/L (22.0-30.0); Chloride 108 mmol/L (98-107); Creatinine Clearance Estimated 46 mL/min (50-200); Estimated Glomerular Filt Rate 81 ml/min (>60); GFR (African American) 98 ML/MIN (>60); Glucose 115 mg/dl (74-100); Potassium 4.1 mmoL/L (3.5-5.1); Sodium 135 mmol/L (136-145)
--- NOTE | 2022-11-30 07:20 | PC.NURSE ---
O2 weaned to 3L NC @0540
[2022-11-30 08:03] LABS: Lymphocytes % 8 % (10-50); Monocytes % 3 % (2-9); Neutrophils % 89 % (42-76); Platelet Estimate Normal; RBC Morphology Normal; Total Cells Counted 100
--- NOTE | 2022-11-30 10:11 | HMH.OTEV ---
OT Inpatient Evaluation Rehab OT IP Evaluation Start: 11/29/22 16:24 Freq: ONCE Status: Active Protocol: Document 11/30/22 10:02 JASE (Rec: 11/30/22 10:11 JASE [id number]) Rehab OT IP Assessment Subjective History 77-year-old female fell, sustained a left femoral neck fracture. She was on Eliquis which was held for 48 hours. I had a discussion with her and her family regarding further management, recommended left cemented hip hemiarthroplasty given her history of osteoporosis. After discussion of risk, benefits, alternatives, they were amenable with the plan. We discussed the risk and benefits of surgery. Risks included but were not limited to pain, bleeding, infection, damage to adjacent structures, need for further surgery, wound healing complications, periprosthetic fracture, dislocation, leg length discrepancy, loss of limb, . Patient expressed verbal consent and written consent was obtained for the above procedure. Patient lives in 1 story home with ramp to enter with and additional family member. Patient was independent with ADLs and fx'l mobility prior to the fall. Patient still driving prior to surgery. Subjective I can try to get up. Instructed Patient on proper hand and foot placement to complete bed mobility from supine->sit @ EOB requiring Mod A. Patient demonstrated good dynamic sitting balance while at EOB. Instructed Patient on SPT with usage of RW to complete EOB->recliner requiring Min A. Left Patient sitting uprig
--- NOTE | 2022-11-30 10:51 | XR_ITS ---
FINAL REPORT CLINICAL HISTORY: Shortness of breath COMPARISON: 11/28/2022 FINDINGS: A portable view of the chest was obtained. The heart is normal in size, unchanged. Left pacemaker is noted. There are slightly worsened left greater than right basilar opacities which may represent atelectasis versus pneumonia. There may be a small pleural effusion. No pneumothorax. IMPRESSION: Slightly worsened bibasilar opacities, may represent atelectasis versus pneumonia. Possible small pleural effusion. Reviewed, Interpreted and Dictated by Paulina Ortiz MD Transcribed by Antonella Man Authenticated and [facility]
--- NOTE | 2022-11-30 11:02 | HMH.PTEV ---
Physical Therapy Evaluation Rehab PT IP Evaluation Start: 11/29/22 16:24 Freq: ONCE Status: Active Protocol: Document 11/30/22 10:00 PHOREFREN (Rec: 11/30/22 11:02 PHORNE [id number]) Subjective/History History History 77 yowf adm to [facility] S/P ground level fall with resulting L hip fx, now S/P L hip RANDLE. She reports she lives with her spouse, who is disabled and she is his primary caregiver, and daughter. No steps to enter the home, she is generally independent with all mobility without AD at baseline. Subjective Subjective Pt reports expected post-op pain in L hip, but agrees to mobility assesment. Pt was informed of post hip prec and reported verbal understanding. Rehab PT IP Eval Objective Appearance Patient Behavior Appropriate Patient Orientation Person,Place,Time Difficulty following instructions none Speech Pattern Clear Ambulation Patient Able to Ambulate Yes Ambulation Observation IP General Gait Pattern Observation Antalgic Gait,Decrease Stride Lngth (R),Decrease Stride Lngth (L) Ambulation Distance (feet) 5 Ambulation Assistive Device Rolling Walker Ambulation Ability Contact Guard/Hand Hold Balance Ability to Arise Able, uses arms to help Sitting Balance Steady, safe Standing Balance Steady, wide stance Dynamic Sitting Balance Ability Good Dynamic Standing Balance Ability Fair Transfers Bed Transfer Ability Contact Guard/Hand Hold Chair Transfer Ability Contact Guard/Hand Hold Sit to Stand Bed Transfer Ability Contact Guard/Hand Hold Sit to Stand Chair Transfer Ability Contact Guard/Hand Hold Rehab PT IP prob,goals,plan Problems Date of Evaluation: 11/30/22 PT IP Problems Bed Mobility,Transfers,Gait Rehab Potential Rehab Potential Good Plan PT Intervention Plan Bed Mobility,Transfers,Gait, Therapeutic Exercise PT Plan Frequency BID Duration LOS Discharge Goals Bed Transfer Ability Supervision/Stand by Sit to Stand Chair Transfer Ability Supervision/Stand by Ambulation Assistive Device Rolling Walker Ambulation Distance (feet) 20 Discharge Plan PT Discharge Plan Pt is currently most
--- NOTE | 2022-11-30 13:51 | PC.NURSE ---
Addendum entered by Radha Fulton RN 11/30/22 13:52: Removed at 0900 Original Note: Hauser catheter removed.
--- NOTE | 2022-11-30 17:19 | EXP.ACUTE.PN ---
Subjective *Date: 11/30/22 *Time: 17:19 Interval history: Tolerated surgery well but slow to recover from anesthesia. Still requiring oxygen this morning. Initially on 4 L on rounds. Has mild nausea but no emesis. Hauser catheter removed. No fevers. Denies any chest pain, headache, confusion. Working with therapy Medical Exam Vital signs and Labs for Last 24 Hours: Vital Signs Temp Pulse Pulse Resp BP BP Pulse Ox 11/30/22 16:00 80 11/30/22 15:17 98.5 F 82 18 87/48 L 88 L 11/30/22 12:00 83 11/30/22 08:00 86 11/30/22 11:18 98.7 F 83 18 104/48 L 88 L 11/30/22 08:00 98.7 F 87 18 83/50 L 97 11/30/22 04:35 98.0 F 66 16 100/55 L 95 11/30/22 03:35 97.9 F 66 16 93/55 L 95 11/30/22 02:35 97.7 F 68 14 102/57 L 93 L 11/30/22 01:05 98.2 F 66 16 90/52 L 94 L 11/30/22 00:35 98.2 F 77 16 132/91 H 95 11/30/22 00:05 98.2 F 70 18 103/56 L 97 11/29/22 23:35 98.1 F 65 16 90/46 L 93 L 11/30/22 01:35 97.7 F 66 14 91/49 L 93 L 11/30/22 05:00 70 11/30/22 00:00 70 11/29/22 23:05 98.2 F 66 16 90/53 L 92 L 11/29/22 22:35 98.3 F 68 16 86/48 L 88 L 11/29/22 22:20 98.3 F 72 14 91/48 L 86 L 11/29/22 22:05 98.4 F 72 14 103/55 L 93 L 11/29/22 21:50 98.4 F 73 14 101/53 L 86 L 11/29/22 21:20 83 14 111/63 89 L 11/29/22 21:10 83 13 110/55 L 87 L 11/29/22 21:00 77 12 105/74 L 85 L 11/29/22 21:40 80 16 93/54 L 94 L 11/29/22 21:30 77 14 97/60 L 93 L 11/29/22 20:50 98.6 F 68 10 L 95/87 L 92 L 11/29/22 19:21 10 L 11/30/22 07:14 98.6 F 80 93/54 L 11/29/22 20:55 98.6 F 77 10 L 95/51 L FiO2 11/30/22 16:00 11/30/22 15:17 11/30/22 12:00 11/30/22 08:00 11/30/22 11:18 11/30/22 08:00 11/30/22 04:35 11/30/22 03:35 11/30/22 02:35 11/30/22 01:05 11/30/22 00:35 11/30/22 00:05 50 11/29/22 23:35 50 11/30/22 01:35 11/30/22 05:00 11/30/22 00:00 11/29/22 23:05 50 11/29/22 22:35 11/29/22 22:20 11/29/22 22:05 11/29/22 21:50 11/29/22 21:20 11/29/22 21:10 11/29/22 21:00 11/29/22 21:40 11/29/22 21:30 11/29/22 20:50 11/29/22 19:21 11/30/22 07:14 11/29/22 20:55 Intake and Output 11/30/22 11/30/22 11/30/22 07:59 15:59 23:59 Intake Total 851 / 1451 600 / 1451 Output Total 700 / 700 0 / 700 Balance 151 / 751 600 / 751 Intake: Intake, Oral Amount 600 / 600 Intake, Total IV Amount 851 / 851 0.9 % Sodium Chloride 1000ML 1, 851 / 851 000 ml @ 50 mls/hr IV .Q20H [facility] Rx#:[id number] Output: Output, Urine Amount 700 / 700 0 / 700 Other: Number of Unmeasured Voids 0 1 Weight 63.5 kg Patient Weight 11/30/22 23:59 Weight 63.5 kg Laboratory Results - last 24 hr 11/30/22 06:20: WBC 11.4 H, RBC 4.22, Hgb 12.4, Hct 40.3, MCV 95.6, MCH 29.3, MCHC 30.7 L, RDW 14.1, Plt Count 174, MPV 8.9, Neut % (Auto) 89.9 H, Lymph % (Auto) 6.3 L, Kemper % (Auto) 3.4, Eos % (Auto) 0.2, Baso % (Auto) 0.1, Neut # (Auto) 10.2 H, Lymph # (Auto) 0.7, Kemper # (Auto) 0.4, Eos # (Auto) 0.0, Baso # (Auto) 0.0, Total Counted 100, Neutrophils % (Manual) 89 H, Lymphocytes % (Manual) 8 L, Monocytes % (Manual) 3, Platelet Estimate Normal, RBC Morphology Normal 11/30/22 06:20: Sodium 135 L, Potassium 4.1, Chloride 108 H, Carbon Dioxide 24, Anion Gap 7.1, BUN 14 D, Creatinine 0.70, Estimated Creat Clear 46, Estimated GFR 81, Est GFR ( Amer) 98, Glucose 115 H, Calcium 7.5 L I & O for Labs for Last 24 Hours: Intake & Output 11/27/22 11/28/22 11/29/22 11/30/22 23:59 23:59 23:59 23:59 Intake Total 1000 / 1000 2293 / 2293 1451 / 1451 Output Total 900 / 900 500 / 1200 700 / 700 Balance 100 / 100 1793 / 1093 751 / 751 Weight 58.967 kg 60.951 kg 63.5 kg 63.5 kg Constitutional: Present no acute distress Head: Present atraumatic and normocephalic Neck
--- NOTE | 2022-11-30 19:55 | PC.NURSE ---
Patient able to ambulate to bedside commode using walker. Pain reported about left hip, prmn pain medication given. VS stable and oxygen weaned to 2LNC. No other changes noted.
--- NOTE | 2022-11-30 21:31 | PC.NURSE ---
Pt has only had 25 ml UOP since wallace catheter removed at 9am today. Bladder scanned at this time with 50ml urine noted in bladder. Nirmal AMBROCIO aware. States to give 500 ml bolus NS now
[2022-12-01] VITALS (9 sets, daily range): BP systolic 88–139; BP diastolic 45–69; PULSE 68–77; RESP 16–18; TEMP 36.4–36.7; O2SAT 92–98; BMI 24.0
--- NOTE | 2022-12-01 01:14 | PC.NURSE ---
200 ml dark yellow/ramila colered UOP at this time, Nirmal AMBROCIO made aware.
--- NOTE | 2022-12-01 05:48 | PC.NURSE ---
Pt complained of left hip pain one time this shift, was medicated PRN per NOV. O2 sats decreased in 80's while pt was asleep, O2 was increased from 2L NC to 2.5 L NC and pt tolerated well. Maintained O2 sats >90%. Dressing to left hip is C/D/I.
[2022-12-01 06:46] LABS: Basophils % 0.3 % (0.1-2.0); Eosinophils # 0.4 K/mm3 (0.0-0.4); Eosinophils % 3.8 % (0.1-12.0); Hematocrit 37.2 % (37.0-47.0); Hemoglobin 11.6 g/dL (12.2-16.2); Lymphocytes # 2.5 K/mm3 (0.7-4.5); Lymphocytes % 22.3 % (10-50); Mean Corpuscular HGB Conc 31.2 g/dL (31.8-35.4); Mean Corpuscular Hemoglobin 29.8 pg (27.0-31.2); Mean Corpuscular Volume 95.5 fl (81-99); Mean Platelet Volume 9.2 fl (7.4-10.4); Monocytes # 0.6 K/mm3 (0.1-1.0); Monocytes % 5.7 % (1.7-9.3); Neutrophils # 7.6 K/mm3 (1.8-7.8); Neutrophils % 67.9 % (37.0-80.0); Platelet Count 192 K/mm3 (142-424); Red Cell Distribution Width 14.2 % (11.5-17.5); White Blood Count 11.2 K/mm3 (4.8-10.8)
[2022-12-01 07:05] LABS: Chloride 108 mmol/L (98-107); Potassium 4.3 mmoL/L (3.5-5.1); Sodium 133 mmol/L (136-145)
[2022-12-01 07:08] LABS: Anion Gap 9.3 mEq/L (5-15); Blood Urea Nitrogen 20 mg/dl (7-17); Carbon Dioxide 20 mmol/L (22.0-30.0); Creatinine Clearance Estimated 46 mL/min (50-200); Estimated Glomerular Filt Rate 81 ml/min (>60); GFR (African American) 98 ML/MIN (>60)
[2022-12-01 07:09] LABS: Calcium 7.5 mg/dl (8.4-10.2); Glucose 120 mg/dl (74-100)
--- NOTE | 2022-12-01 09:12 | EXP.ORTH.PN ---
Subjective *Date: 12/01/22 *Time: 09:00 Interval history: Mrs. Amin is a 77-year-old female patient who underwent an uneventful left primary hip hemiarthroplasty performed by Dr. Norton on 11/29/2022. Today the patient is postop day #2. This morning she is sitting comfortably in a chair at the bedside and her daughter is present. She reports left hip pain as to be expected but states it is well controlled with as needed pain medication and rest. She reports that she has ambulated with the assistance of physical therapy and that this has been going well. She states that she has been eating and drinking well and denies any episodes of nausea or vomiting. No history of any fevers, chills, rigors, or distal tingling/numbness. She denies any other symptoms or concerns at this time. Ortho Exam (Inpt) Vital signs and Labs for Last 24 Hours: Temp Pulse Resp BP Pulse Ox FiO2 97.8 F 75 18 105/66 L 92 L 50 12/01/22 07:30 12/01/22 07:30 12/01/22 07:30 12/01/22 07:30 12/01/22 07:30 11/30/22 00:05 Laboratory Results - last 24 hr 12/01/22 06:30: WBC 11.2 H, RBC 3.90 L, Hgb 11.6 L, Hct 37.2, MCV 95.5, MCH 29.8, MCHC 31.2 L, RDW 14.2, Plt Count 192, MPV 9.2, Neut % (Auto) 67.9, Lymph % (Auto) 22.3, Hendricks % (Auto) 5.7, Eos % (Auto) 3.8, Baso % (Auto) 0.3, Neut # (Auto) 7.6, Lymph # (Auto) 2.5, Hendricks # (Auto) 0.6, Eos # (Auto) 0.4, Baso # (Auto) 0.0 12/01/22 06:30: Sodium 133 L, Potassium 4.3, Chloride 108 H, Carbon Dioxide 20 L, Anion Gap 9.3, BUN 20 H D, Creatinine 0.70, Estimated Creat Clear 46, Estimated GFR 81, Est GFR ( Amer) 98, Glucose 120 H, Calcium 7.5 L I & O for Labs for Last 24 Hours: Intake & Output 11/28/22 11/29/22 11/30/22 12/01/22 23:59 23:59 23:59 23:59 Intake Total 1000 / 1000 2293 / 2293 1811 / 1811 240 / 240 Output Total 900 / 900 500 / 1200 725 / 725 250 / 250 Balance 100 / 100 1793 / 1093 1086 / 1086 -10 / -10 Weight 134 lb 6 oz 139 lb 15.896 oz 139 lb 15.896 oz 140 lb 8 oz Head: Present normocephalic and atraumatic Eyes: Present as per HPI ENT: Present normal exam Neck: Present normal inspection, full ROM and trachea midline; Absent lymphadenopathy Respiratory: Present normal respiratory effort, able to speak in complete sentences and symmetric chest movement; Absent accessory muscle use Cardiac: Present Reg Rate and Rhythm GI: Present soft; Absent tenderness Comment:: Upon examination of the lower extremities: Limb lengths are grossly equal. Upon examination the left hip, dressings present are clean, dry, and intact. The left hip and proximal femur are tender to palpation. Attempted movements of the left hip are somewhat painful. Thigh and calf are soft nontender; Homans' sign is negative. No clinical evidence of DVT or compartment syndrome noted. Posterior tibial pulse 2+; capillary fill is brisk. Sensation to light touch is grossly intact throughout. Patient is actively mobilizing the foot, ankle, and toes. Diagnostic imaging: X-ray performed postoperatively at [facility] on 11/29/2022 reviewed along with radiologist report. X-ray of the left hip demonstrates a left hip hemiarthroplasty with orthopedic components in satisfactory alignment and fixation. No evidence of orthopedic complications noted. Radiologist report is as follows: FINDINGS: Bones/joints: The patient is status post left hip arthroplasty. There is air noted in the adjacent soft tissues. There is no evidence of hardware loosening or fracture. Soft tissues: See Bones/joints finding. IMPRESSION: Status post left hip arthroplasty with expected postoperative changes. Skin: Present intact, warm and normal turgor; Absent cyanosis, erythema, lesions or jaundice Neuro: Present Cranial Nerve 2-12 Intact, Motor Function Intact, Sensory Function Intact, alert, awake, oriented x 3, tone normal and moves all extremities; Absent Numbness or Tingling Assess
--- NOTE | 2022-12-01 09:15 | EXP.ACUTE.PN ---
Subjective *Date: 12/01/22 *Time: 09:15 Interval history: Patient is doing well. Pain is well controlled. She is ambulating. Not wanting to do inpatient rehab. Will wean oxygen today consider discharge tomorrow. Medical Exam Vital signs and Labs for Last 24 Hours: Vital Signs Temp Pulse Pulse Resp BP Pulse Ox 12/01/22 07:30 97.8 F 75 18 105/66 L 92 L 12/01/22 03:55 97.7 F 71 16 111/62 95 12/01/22 00:00 70 12/01/22 00:00 97.8 F 71 17 115/68 93 L 11/30/22 20:00 70 11/30/22 19:51 78 18 105/64 L 92 L 11/30/22 16:00 80 11/30/22 15:17 98.5 F 82 18 87/48 L 88 L 11/30/22 12:00 83 11/30/22 11:18 98.7 F 83 18 104/48 L 88 L Intake and Output 11/30/22 12/01/22 12/01/22 23:59 07:59 15:59 Intake Total 360 / 1811 240 / 240 Output Total 25 / 725 250 / 250 Balance 335 / 1086 -250 / -10 240 / -10 Intake: Intake, Oral Amount 360 / 960 240 / 240 Output: Output, Urine Amount 25 / 725 250 / 250 Other: Number of Unmeasured Voids 0 1 Weight 63.73 kg Patient Weight 12/01/22 23:59 Weight 63.73 kg Laboratory Results - last 24 hr 12/01/22 06:30: WBC 11.2 H, RBC 3.90 L, Hgb 11.6 L, Hct 37.2, MCV 95.5, MCH 29.8, MCHC 31.2 L, RDW 14.2, Plt Count 192, MPV 9.2, Neut % (Auto) 67.9, Lymph % (Auto) 22.3, [place] % (Auto) 5.7, Eos % (Auto) 3.8, Baso % (Auto) 0.3, Neut # (Auto) 7.6, Lymph # (Auto) 2.5, [place] # (Auto) 0.6, Eos # (Auto) 0.4, Baso # (Auto) 0.0 12/01/22 06:30: Sodium 133 L, Potassium 4.3, Chloride 108 H, Carbon Dioxide 20 L, Anion Gap 9.3, BUN 20 H D, Creatinine 0.70, Estimated Creat Clear 46, Estimated GFR 81, Est GFR ( Amer) 98, Glucose 120 H, Calcium 7.5 L I & O for Labs for Last 24 Hours: Intake & Output 11/28/22 11/29/22 11/30/22 12/01/22 23:59 23:59 23:59 23:59 Intake Total 1000 / 1000 2293 / 2293 1811 / 1811 240 / 240 Output Total 900 / 900 500 / 1200 725 / 725 250 / 250 Balance 100 / 100 1793 / 1093 1086 / 1086 -10 / -10 Weight 60.951 kg 63.5 kg 63.5 kg 63.73 kg Constitutional: Present no acute distress Head: Present atraumatic and normocephalic Neck: Present normal inspection Respiratory: Present normal respiratory effort; Absent accessory muscle use, rhonchi, wheezes or crackles Cardiac: Present Reg Rate and Rhythm GI: Present soft and normal bowel sounds; Absent distention or tenderness Extremities: Absent edema Comment:: Equal leg length, surgical wound clean dry and intact. Tender over left hip. Skin: Present intact; Absent erythema Neuro: Present Grossly Intact, alert, awake, oriented x 3 and moves all extremities Assessment and Plan *Assessment and plan (1) Hypothyroidism: Status: Acute Category: Medical Code(s): E03.9 - Hypothyroidism, unspecified (2) Atrial fibrillation: Status: Acute Category: Medical Code(s): I48.91 - Unspecified atrial fibrillation (3) Closed hip fracture: Status: Acute Category: Medical Code(s): S72.009A - Fracture of unspecified part of neck of unspecified femur, initial encounter for closed fracture (4) Pneumonia: Status: Acute Category: Medical Code(s): J18.9 - Pneumonia, unspecified organism (5) Anemia: Status: Acute Category: Medical Code(s): D64.9 - Anemia, unspecified Plan 77 yo F with Afib, hypothyroidroid. Fell at home from standing height, sustained left hip fracture. Orthopedics consulted, assisting with care, status post OR. tolerated procedure well. Slow to recover from anesthesia however. Still on oxygen this morning will wean. Problems addressed as follows: Oxygen requirement -Pneumonia versus atelectasis -Incentive spirometer -We will wean as tolerated -Doxycycline 5 days Closed hip fracture Orthopedics consulted, surgery went well yesterday. Resume Eliquis for DVT prophylaxis. PT and OT eval today. Plan to go home with home health. Multimodal pain medic
--- NOTE | 2022-12-01 15:43 | PC.NURSE ---
No complaints of seeing colors after pain medication administration. Patient able to ambulate to bathroom and back with pt/ot. VS stable. Oxygen weaned to 1.5LNC. Lung sounds clear.
[2022-12-02] VITALS (8 sets, daily range): BP systolic 107–137; BP diastolic 60–76; PULSE 62–93; RESP 16–18; TEMP 36.6–36.8; O2SAT 92–95; BMI 24.0
--- NOTE | 2022-12-02 04:52 | PC.NURSE ---
PATIENT ABLE TO GO TO [facility] – [place] WITH ASSIST X1. DRSG C/D/I TO LEFT HIP/THIGH. MEDICATED X 1 AT 2236 FOR HIP PAIN 04/13. HR REG. I EPISODE OF PACED RHYTHM NOTED ON TELE. DAUGHTER AT BEDSIDE. 02 AT 2LNC, SATS AT 95%. USES ABDUCTION PILLOW. NO NEURO-CIRCULATION DEFICITS NOTED LLE.
[2022-12-02 05:51] LABS: Basophils % 0.4 % (0.1-2.0); Eosinophils # 0.5 K/mm3 (0.0-0.4); Eosinophils % 5.4 % (0.1-12.0); Hematocrit 33.8 % (37.0-47.0); Hemoglobin 10.6 g/dL (12.2-16.2); Lymphocytes # 2.7 K/mm3 (0.7-4.5); Lymphocytes % 27.4 % (10-50); Mean Corpuscular HGB Conc 31.2 g/dL (31.8-35.4); Mean Corpuscular Hemoglobin 29.8 pg (27.0-31.2); Mean Corpuscular Volume 95.3 fl (81-99); Mean Platelet Volume 9.1 fl (7.4-10.4); Monocytes # 0.7 K/mm3 (0.1-1.0); Monocytes % 6.7 % (1.7-9.3); Neutrophils # 5.9 K/mm3 (1.8-7.8); Neutrophils % 60.1 % (37.0-80.0); Platelet Count 200 K/mm3 (142-424); Red Blood Count 3.55 M/mm3 (4.20-5.40); Red Cell Distribution Width 14.5 % (11.5-17.5); White Blood Count 9.7 K/mm3 (4.8-10.8)
[2022-12-02 05:59] LABS: Alanine Aminotransferase 63 U/L (12-78); Albumin Level 2.8 g/dl (3.5-5.0); Albumin/Globulin Ratio 1.2 (1.1-1.8); Alkaline Phosphatase 125 U/L (38-126); Anion Gap 7.9 mEq/L (5-15); Aspartate Amino Transferase 93 U/L (14-36); Bilirubin,Total 0.5 mg/dl (0.2-1.3); Blood Urea Nitrogen 18 mg/dl (7-17); Calcium 7.6 mg/dl (8.4-10.2); Carbon Dioxide 22 mmol/L (22.0-30.0); Chloride 108 mmol/L (98-107); Creatinine Clearance Estimated 46 mL/min (50-200); Estimated Glomerular Filt Rate 96 ml/min (>60); GFR (African American) 117 ML/MIN (>60); Globulin 2.4 g/dL (1.3-3.2); Glucose 106 mg/dl (74-100); Magnesium 2.2 mg/dl (1.6-2.3); Potassium 3.9 mmoL/L (3.5-5.1); Sodium 134 mmol/L (136-145); Total Protein,Serum 5.2 g/dl (6.3-8.2)
[2022-12-02 06:05] LABS: Phosphorous 1.5 mg/dl (2.5-4.5)
--- NOTE | 2022-12-02 06:06 | PC.NURSE ---
AT 0605 LAB CALLED CRITICAL :PHOSPHORUS 1.5. LAB CALLED TO [facility].
--- NOTE | 2022-12-02 11:40 | EXP.DC.SUM ---
General Admission date:: 11/28/22 HPI HPI HPI: Mrs. Amin is a 77-year-old female patient admitted to the acute inpatient service after sustaining a mechanical fall at home yesterday 11/27/2022. She reports that she was walking down a set of stairs when she missed the last step, causing her to fall onto her left side. She reports immediate left hip pain and states that she was not able to ambulate so she was subsequently brought to the [facility] emergency department for further evaluation. X-ray performed in the emergency department demonstrates a left subcapital femoral neck fracture. This morning the patient is lying comfortably in bed and her daughter is present at the bedside. She continues to report left hip pain but states that it is well controlled with as needed pain medication and rest. No history of any distal tingling/numbness. At baseline she states that she ambulates without the use of any walking aids, she denies any antecedent left hip pain. Her past medical history is significant for hypothyroidism and atrial fibrillation on long-term anticoagulation with Eliquis; her last dose was 11/27/2022 at 9 AM. She is a non-smoker. She denies any other symptoms or concerns at this time. Hospital Course Hospital Course Hospital Course: Admitted for mechanical fall with left hip fracture.Patient subcapital femoral neck fracture. Orthopedics consulted. Took her to the OR. Successful left hip cemented hemiarthroplasty. Eliquis held for 48 hours. Patient new oxygen requirement postoperatively pneumonia versus atelectasis, started on doxycycline for 5 days. Symptomatic improvement, H&H stable, restarted on home medications. Discharged with primary care physician follow-up. Exam Data for Last 24 hours Vital signs and Labs for Last 24 Hours: Temp Pulse Resp BP Pulse Ox FiO2 97.8 F 68 17 130/72 95 1.5 12/02/22 07:52 12/02/22 07:52 12/02/22 07:52 12/02/22 07:52 12/02/22 07:52 12/01/22 15:11 Laboratory Results - last 24 hr 12/02/22 05:40: WBC 9.7, RBC 3.55 L, Hgb 10.6 L, Hct 33.8 L, MCV 95.3, MCH 29.8, MCHC 31.2 L, RDW 14.5, Plt Count 200, MPV 9.1, Neut % (Auto) 60.1, Lymph % (Auto) 27.4, [place] % (Auto) 6.7, Eos % (Auto) 5.4, Baso % (Auto) 0.4, Neut # (Auto) 5.9, Lymph # (Auto) 2.7, [place] # (Auto) 0.7, Eos # (Auto) 0.5 H, Baso # (Auto) 0.0 12/02/22 05:40: Sodium 134 L, Potassium 3.9, Chloride 108 H, Carbon Dioxide 22, Anion Gap 7.9, BUN 18 H, Creatinine 0.60, Estimated Creat Clear 46, Estimated GFR 96, Est GFR ( Amer) 117, Glucose 106 H, Calcium 7.6 L, Phosphorus 1.5 L, Magnesium 2.2, Total Bilirubin 0.5, AST 93 H, ALT 63, Alkaline Phosphatase 125, Total Protein 5.2 L D, Albumin 2.8 L, Globulin 2.4, Albumin/Globulin Ratio 1.2 I & O for Last 24 hours: Intake & Output 11/29/22 11/30/22 12/01/22 12/02/22 23:59 23:59 23:59 23:59 Intake Total 2293 / 2293 1811 / 1811 3416 / 3416 480 / 480 Output Total 500 / 1200 725 / 725 251 / 251 Balance 1793 / 1093 1086 / 1086 3165 / 3165 480 / 480 Weight 63.5 kg 63.5 kg 63.73 kg 63.701 kg Results Data Completed and Pending Labs on day of discharge: Labs from last 24 hours 12/02/22 12/02/22 05:40 05:40 WBC 9.7 RBC 3.55 L Hgb 10.6 L Hct 33.8 L MCV 95.3 MCH 29.8 MCHC 31.2 L RDW 14.5 Plt Count 200 MPV 9.1 Neut % (Auto) 60.1 Lymph % (Auto) 27.4 [place] % (Auto) 6.7 Eos % (Auto) 5.4 Baso % (Auto) 0.4 Neut # (Auto) 5.9 Lymph # (Auto) 2.7 [place] # (Auto) 0.7 Eos # (Auto) 0.5 H Baso # (Auto) 0.0 Sodium 134 L Potassium 3.9 Chloride 108 H Carbon Dioxide 22 Anion Gap 7.9 BUN 18 H Creatinine 0.60 Estimated Creat Clear 46 Estimated GFR 96 Est GFR ( Amer) 117 Glucose 106 H Calcium 7.6 L Phosphorus 1.5 L Magnesium 2.2 Total Bilirubin 0.5 AST 93 H ALT 63 Alkaline Phosphatase 125 Total Protein 5.2 L D Albumin 2.8 L Globulin 2.4 Albumin/Globulin Ratio
--- NOTE | 2022-12-02 12:48 | HMH.PHAINT1 ---
Pharmacy Intervention Comments: DISCHARGE MEDICATION COUNSELING PROVIDED. DISCUSSED THE FOLLOWING NEW PRESCRIPTIONS: -PERCOCET (FOR MODERATE TO SEVERE PAIN, TAKE NEEDED, N/V, CONSTIPATION, SEDATION, DECREASED RESPIRATIONS POSSIBLE) -MIRALAX (DAILY, FOR CONSTIPATION, MIX WITH 8 OZ OF WATER AND DRINK) PATIENT VERBALIZED NO QUESTIONS AT THIS TIME.
--- NOTE | 2022-12-02 15:20 | CARE MANAGER ---
Patient Choice signed for [facility] and [facility]. Orders/clinical faxed to both. She will discharge home today with [facility] PT and home oxygen.
--- NOTE | 2022-12-05 15:22 | CARE MANAGER ---
Attempted post-discharge phone interview, no answer.
--- NOTE | 2023-01-30 01:14 | PC.NURSE ---
Operative report and discharge summary faxed to [facility]
== END 2022-12-02 14:10 | disposition home or self-care (01) | DRG 521 ==
LOC: ER 11-28 01:37 → 2ND 11-28 11:48
PROVIDERS: Internal Medicine Adolescent Medicine; Nurse Practitioner Acute Care; Orthopaedic Surgery; Physician Assistant Surgical; Admitting Provider Student in an Organized Health Care Education/Training Program; Emergency Provider Emergency Medicine; PCP Internal Medicine Adolescent Medicine; Visit Provider Student in an Organized Health Care Education/Training Program
PROC: 0SRS0J9 Replacement of Left Hip Joint, Femoral Surface with Synthetic Substitute, Cemented, Open Approach (ICD-10-PCS; principal; 2022-11-29 16:50)
DX: S72.012A Unspecified intracapsular fracture of left femur, initial encounter for closed fracture (principal); J18.9 Pneumonia, unspecified organism; J98.11 Atelectasis; I48.91 Unspecified atrial fibrillation; E03.9 Hypothyroidism, unspecified; D64.9 Anemia, unspecified; J44.9 Chronic obstructive pulmonary disease, unspecified; W10.8XXA Fall (on) (from) other stairs and steps, initial encounter; Y92.018 Other place in single-family (private) house as the place of occurrence of the external cause; M19.90 Unspecified osteoarthritis, unspecified site; Z95.0 Presence of cardiac pacemaker; I10 Essential (primary) hypertension
CPT/HCPCS: 27236; 36415; 51702; 70450; 71045; 72125; 73502; 73700; 80048; 80053; 81001; 83735; 84100; 85007; 85025; 86850; 93005; 93306; 97110; 97116; 97162; 97165; 97530; 97535; 99285; C1776; C9803; J0697; J2405; J3370; U0003; U0005

== ENCOUNTER 2022-12-18 22:08 | Emergency (ER) | payer MEDICARE, SELFPAY ==
[2022-12-18 22:08] VITALS: BP 157/86; PULSE 80; RESP 14; TEMP 36.5; O2SAT 93; BMI 24.0
--- NOTE | 2022-12-18 22:31 | CT_ITS ---
PROCEDURE INFORMATION: Exam: CT Maxillofacial Without Contrast Exam date and time: 12/18/2022 10:47 PM Age: 77 years old Clinical indication: Injury or trauma; Fall; Additional info: Fall, face trauma, inj to nose TECHNIQUE: Imaging protocol: Computed tomography of the face without contrast. Radiation optimization: All CT scans at this facility use at least one of these dose optimization techniques: automated exposure control; mA and/or kV adjustment per patient size (includes targeted exams where dose is matched to clinical indication); or iterative reconstruction. REPORTING DATA: Count of CT and Cardiac NM exams in prior 12 months: This patient has received 5 known CTs and 0 known cardiac nuclear medicine studies in the 12 months prior to the current study. COMPARISON: CT HEAD/BRAIN WO CON 12/18/2022 10:45 PM FINDINGS: Orbital cavities: Orbits are normal. Globes are unremarkable. Bones/joints: No acute fracture. Paranasal sinuses: Normal. No air-fluid levels. Soft tissues: Unremarkable. IMPRESSION: No acute findings.
--- NOTE | 2022-12-18 22:31 | CT_ITS ---
PROCEDURE INFORMATION: Exam: CT Cervical Spine Without Contrast Exam date and time: 12/18/2022 10:49 PM Age: 77 years old Clinical indication: Injury or trauma; Fall; Other: Pain; Additional info: Fall, neck pain TECHNIQUE: Imaging protocol: Computed tomography of the cervical spine without contrast. Radiation optimization: All CT scans at this facility use at least one of these dose optimization techniques: automated exposure control; mA and/or kV adjustment per patient size (includes targeted exams where dose is matched to clinical indication); or iterative reconstruction. REPORTING DATA: Count of CT and Cardiac NM exams in prior 12 months: This patient has received 5 known CTs and 0 known cardiac nuclear medicine studies in the 12 months prior to the current study. COMPARISON: CT CERVICAL SPINE WO CON 11/28/2022 12:11 AM FINDINGS: Bones/joints: No acute fracture. Normal alignment. No significant disc bulge or herniation. No severe spinal canal stenosis. No significant neural foraminal narrowing. Lungs: Lung apices are normal. Soft tissues: Unremarkable. IMPRESSION: No acute findings.
--- NOTE | 2022-12-18 22:31 | CT_ITS ---
PROCEDURE INFORMATION: Exam: CT Head Without Contrast Exam date and time: 12/18/2022 10:45 PM Age: 77 years old Clinical indication: Injury or trauma; Fall; Additional info: Fall, RANDLE TECHNIQUE: Imaging protocol: Computed tomography of the head without contrast. Radiation optimization: All CT scans at this facility use at least one of these dose optimization techniques: automated exposure control; mA and/or kV adjustment per patient size (includes targeted exams where dose is matched to clinical indication); or iterative reconstruction. REPORTING DATA: Count of CT and Cardiac NM exams in prior 12 months: This patient has received 5 known CTs and 0 known cardiac nuclear medicine studies in the 12 months prior to the current study. COMPARISON: CT HEAD/BRAIN WO CON 11/28/2022 12:08 AM FINDINGS: Brain: Normal. No hemorrhage. Unremarkable white matter. No mass effect. Cerebral ventricles: No ventriculomegaly. Paranasal sinuses: Visualized sinuses are unremarkable. No fluid levels. Mastoid air cells: Visualized mastoid air cells are well aerated. Bones/joints: Unremarkable. No acute fracture. Soft tissues: Unremarkable. IMPRESSION: No acute intracranial abnormality.
--- NOTE | 2022-12-18 22:50 | HMH.EDGENADL ---
Discharge Plan Disposition Patient Disposition: Home, Self-Care Condition: Good Chief Complaint: Fall Prescriptions Prescriptions: No Action amlodipine 2.5 mg tablet 2.5 mg PO DAILY Label Comments: TAKE 1 TABLET BY MOUTH ONCE DAILY citalopram 20 mg tablet 20 mg PO DAILY Label Comments: TAKE 1 TABLET BY MOUTH ONCE DAILY flecainide 50 mg tablet 50 mg PO Q12 metoprolol succinate 25 mg tablet extended release 24 hr 25 mg PO DAILY Label Comments: TAKE 1 TABLET BY MOUTH ONCE DAILY Eliquis 5 mg tablet 5 mg PO BID polyethylene glycol 3350 [Miralax] 17 gram Powder In Packet 17 g PO DAILY 10 Days Qty: 1 0RF oxycodone-acetaminophen 10-325 mg Tablet 1 ea PO Q4HP PRN (Reason: MODERATE TO SEVERE PAIN) 3 Days Qty: 18 0RF doxycycline hyclate 100 mg Tablet 100 mg PO BID 3 Days Qty: 6 0RF atorvastatin 20 MG tablet 20 mg PO HS levothyroxine 125 MCG tablet 125 mcg PO DAILY cholecalciferol (vitamin D3) 50 MCG tablet 25 mcg PO DAILY cyanocobalamin (vitamin B-12) 5,000 MCG tablet,disintegrating 1,000 mcg PO DAILY Referrals Follow up/Referrals: Dustin Russell MD [Primary Care Provider] - See instructions Clinical Impressions Clinical Impression: Abrasion of face Instructions Patient Instructions: How to Prevent Falls Print Language Print Language: Urdu Discharge ED Provider: Taras Long General Adult HPI General Chief complaint: Fall Stated complaint: Fall, deformed nose & epitaxsis controlled Time Seen by Provider: 12/18/22 23:35 Mode of Arrival: EMS Source of Information: Patient Limitations: No Limitations Description of Symptoms (Recalled from ER Triage Doc. by RN): pt states she tripped over feet and fell hitting tv stand. pt c/o head and nose pain History of Present Illness HPI narrative: 23Patient presents to the emergency department after reportedly falling just prior to arrival. She had a mechanical fall where her walker and feet got tripped up in a rug. The patient is weeks out from a total left hip replacement. The patient states that she did not injure her hip with her fall. She struck her face on a table in her bedroom. Denies any loss of consciousness. Only describes a minimal headache and facial pain. She does describe upper neck pain. Denies any numbness, tingling or weakness in any of her arms or legs Related Data Home Medications Medication Instructions Recorded Confirmed atorvastatin 20 mg tablet 20 mg PO HS Cholesterol 06/09/20 11/28/22 cholecalciferol (vitamin D3) 50 25 mcg PO DAILY Supplement 06/09/20 11/28/22 mcg (2,000 unit) tablet cyanocobalamin (vitamin B-12) 1,000 mcg PO DAILY Supplement 06/09/20 11/28/22 5,000 mcg disintegrating tablet levothyroxine 125 mcg tablet 125 mcg PO DAILY Thyroid 06/09/20 11/28/22 amlodipine 2.5 mg tablet 2.5 mg PO DAILY High blood pressure 11/28/22 11/28/22 apixaban 5 mg tablet (Eliquis) 5 mg PO BID Blood thinner - Afib 11/28/22 11/28/22 citalopram 20 mg tablet 20 mg PO DAILY Anxiety 11/28/22 11/28/22 flecainide 50 mg tablet 50 mg PO Q12 Heart rhythm 11/28/22 11/28/22 metoprolol succinate 25 mg 25 mg PO DAILY Heart rate control 11/28/22 11/28/22 tablet,extended release 24 hr Previous Rx's Medication Instructions Recorded doxycycline hyclate 100 mg tablet 100 mg PO BID 3 days #6 tabs 12/02/22 oxycodone-acetaminophen 10 mg-325 1 ea PO Q4HP PRN MODERATE TO 12/02/22 mg tablet SEVERE PAIN 3 days #18 tabs polyethylene glycol 3350 17 gram 17 g PO DAILY 10 days #1 ea 12/02/22 oral powder packet (Miralax) Allergies Allergy/AdvReac Type Severity Reaction Status Date / Time diclofenac Allergy Intermediate Rash Verified 06/09/20 13:46 phenobarbital [PHENOBARBITAL] Allergy Unknown Verified 06/26/21 20:21 rivaroxaban [From Xarelto] Allergy Unknown Verified 11/28/22 02:39 Sulfa (Sulfonamide Allergy Unknown Verified 06/09/20 13:46 Antibiotics)
[2022-12-18 23:37] VITALS: BP 142/72; PULSE 79; RESP 14; TEMP 36.5; O2SAT 95
== END 2022-12-18 23:43 | disposition home or self-care (01) ==
PROVIDERS: Emergency Provider Emergency Medicine; PCP Internal Medicine Adolescent Medicine
DX: S00.81XA Abrasion of other part of head, initial encounter (principal); M54.2 Cervicalgia; W01.190A Fall on same level from slipping, tripping and stumbling with subsequent striking against furniture, initial encounter
CPT/HCPCS: 70450; 70486; 72125; 96372; 99284; 99285

== ENCOUNTER → 2022-12-27 10:51 | Outpatient (CLI) | payer MEDICARE, SELFPAY ==
--- NOTE | 2022-12-27 10:58 | XR_ITS ---
FINAL REPORT CLINICAL HISTORY: hip pain x days, limited NETO COMPARISON: November 29, 2022 FINDINGS: 2 views of the left hip and an AP pelvis were obtained. There is no acute fracture or dislocation. There has been left hip arthroplasty. There is a calcification adjacent to the ischial tuberosity. There is a small calcification adjacent to the greater trochanter. Postoperative changes are seen from fusion of L4-L5. IMPRESSION: No acute bony abnormality. Postoperative and chronic changes. Stable. Reviewed, Interpreted and Dictated by Felipe Hansen III, MD Transcribed by Gume Sandy Authenticated and [facility]
== END ==
LOC: RAD 10:52
PROVIDERS: PCP Internal Medicine Adolescent Medicine; Visit Provider Orthopaedic Surgery
DX: S72.002A Fracture of unspecified part of neck of left femur, initial encounter for closed fracture (principal)
CPT/HCPCS: 73502

== ENCOUNTER → 2023-01-27 08:58 | Outpatient (CLI) | payer MEDICARE, SELFPAY ==
--- NOTE | 2023-01-27 09:02 | XR_ITS ---
FINAL REPORT CLINICAL HISTORY: lt hip pain COMPARISON: 12/27/2022 FINDINGS: Left hip Two views were obtained. There is no acute fracture or dislocation. The patient is status post left hip arthroplasty. There are postoperative changes in the lower lumbar spine. There are mild degenerative changes of the right hip. IMPRESSION: Degenerative and postsurgical changes as above. Reviewed, Interpreted and Dictated by Felipe Hansen III, MD Transcribed by Concetta Andrew Authenticated and [facility]
== END ==
LOC: RAD 09:00
PROVIDERS: PCP Internal Medicine Adolescent Medicine; Visit Provider Orthopaedic Surgery
DX: Z09 Encounter for follow-up examination after completed treatment for conditions other than malignant neoplasm (principal); M25.552 Pain in left hip
CPT/HCPCS: 73502

== ENCOUNTER 2023-01-29 12:26 | Emergency (ER) | payer MEDICARE, SELFPAY ==
[2023-01-29 12:27] VITALS: BP 128/63; PULSE 69; RESP 18; TEMP 36.7; O2SAT 95; BMI 21.9
--- NOTE | 2023-01-29 12:50 | HMH.EDGENADL ---
Discharge Plan Disposition Chief Complaint: PAIN Prescriptions Prescriptions: No Action amlodipine 2.5 mg tablet 2.5 mg PO DAILY Label Comments: TAKE 1 TABLET BY MOUTH ONCE DAILY citalopram 20 mg tablet 20 mg PO DAILY Label Comments: TAKE 1 TABLET BY MOUTH ONCE DAILY flecainide 50 mg tablet 50 mg PO Q12 metoprolol succinate 25 mg tablet extended release 24 hr 25 mg PO DAILY Label Comments: TAKE 1 TABLET BY MOUTH ONCE DAILY Eliquis 5 mg tablet 5 mg PO BID oxycodone-acetaminophen 10-325 mg Tablet 1 ea PO Q4HP PRN (Reason: MODERATE TO SEVERE PAIN) 3 Days Qty: 18 0RF polyethylene glycol 3350 [Miralax] 17 gram powder in packet 17 g PO DAILY doxycycline hyclate 100 mg tablet 100 mg PO BID atorvastatin 20 MG tablet 20 mg PO HS levothyroxine 125 MCG tablet 125 mcg PO DAILY cholecalciferol (vitamin D3) 50 MCG tablet 25 mcg PO DAILY cyanocobalamin (vitamin B-12) 5,000 MCG tablet,disintegrating 1,000 mcg PO DAILY Referrals Follow up/Referrals: Dustin Russell MD [Primary Care Provider] - See instructions Clinical Impressions 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 Norton on 11/29 here with severe left hip pain essentially nontraumatic. She bent over yesterday evening tried to roll picker her dog to place her dog into a bed and around that time she began hearing a clicking sound with severe pain but did not know an exact time when she began having discomfort. She did not fall or have any significant trauma to this area. However since that time she has been unable to bear any weight and when with any internal/external rotation or flexion or extension of the hip she is having severe pain. This occurred late last night and has persisted into today. Pain is severe with any type of movement stable at rest. Related Data Home Medications Medication Instructions Recorded Confirmed atorvastatin 20 mg tablet 20 mg PO HS Cholesterol 06/09/20 01/29/23 cholecalciferol (vitamin D3) 50 25 mcg PO DAILY Supplement 06/09/20 01/29/23 mcg (2,000 unit) tablet cyanocobalamin (vitamin B-12) 1,000 mcg PO DAILY Supplement 06/09/20 01/29/23 5,000 mcg disintegrating tablet levothyroxine 125 mcg tablet 125 mcg PO DAILY Thyroid 06/09/20 01/29/23 amlodipine 2.5 mg tablet 2.5 mg PO DAILY High blood pressure 11/28/22 01/29/23 apixaban 5 mg tablet (Eliquis) 5 mg PO BID Blood thinner - Afib 11/28/22 01/29/23 citalopram 20 mg tablet 20 mg PO DAILY Anxiety 11/28/22 01/29/23 flecainide 50 mg tablet 50 mg PO Q12 Heart rhythm 11/28/22 01/29/23 metoprolol succinate 25 mg 25 mg PO DAILY Heart rate control 11/28/22 01/29/23 tablet,extended release 24 hr doxycycline hyclate 100 mg tablet 100 mg PO BID . 01/29/23 01/29/23 polyethylene glycol 3350 17 gram 17 g PO DAILY constipation 01/29/23 01/29/23 oral powder packet (Miralax) Previous Rx's Medication Instructions Recorded oxycodone-acetaminophen 10 mg-325 1 ea PO Q4HP PRN MODERATE TO 12/02/22 mg tablet SEVERE PAIN 3 days #18 tabs Allergies Allergy/AdvReac Type Severity Reaction Status Date / Time diclofenac Allergy Intermediate Rash Verified 01/29/23 15:12 phenobarbital [PHENOBARBITAL] Allergy Unknown Verified 01/29/23 15:12 rivaroxaban [From Xarelto] Allergy Unknown Verified 01/29/23 15:12 Sulfa (Sulfonamide Allergy Unknown Verified 01/29/23 15:12 Antibiotics) [facility] Disclaimer: The information contained in this section may have been updated after the patient was seen, as this information can be updated by other users. Medical History (Review
--- NOTE | 2023-01-29 12:55 | XR_ITS ---
PROCEDURE INFORMATION: Exam: XR Left Hip Exam date and time: 01/29/2023 1:02 PM Age: 78 years old Clinical indication: Hip pain; Prior surgery; Surgery date: 1-6 months; Surgery type: Left hip surgery in November 2022. ; Additional info: Recent hip surgery, non traumatic pain left hip TECHNIQUE: Imaging protocol: Radiologic exam of the left hip. Views: 2 or 3 views hip with pelvis when performed. COMPARISON: CR XR HIP LT 2-3V W/PELVIS 01/27/2023 9:03 AM FINDINGS: Bones/joints: Bipolar left hip prosthesis unchanged in position and alignment. No dislocation. Hardware is intact. Bone metal interface is unremarkable. Postoperative changes lower lumbar spine, stable. Mild-moderate degenerative changes right hip joint, stable. Soft tissues: Small nodular ossific density within the soft tissues below left hip joint, unchanged, presumed degenerative in nature.. Organs: Confluent amorphous calcifications left lower pelvis presumed secondary to degenerated calcified uterine fibroids. IMPRESSION: Stable appearance of bipolar left hip prosthesis. No acute abnormalities.
[2023-01-29 13:55] LABS: Chloride 101 mmol/L (98-107)
[2023-01-29 13:56] LABS: Potassium 4.1 mmoL/L (3.5-5.1); Sodium 137 mmol/L (136-145)
[2023-01-29 13:58] LABS: Alanine Aminotransferase 22 U/L (12-78); Alkaline Phosphatase 103 U/L (38-126); Aspartate Amino Transferase 29 U/L (14-36); Bilirubin,Total 0.9 mg/dl (0.2-1.3); Blood Urea Nitrogen 11 mg/dl (7-17); Creatinine Clearance Estimated 42 mL/min (50-200); Estimated Glomerular Filt Rate 81 ml/min (>60); GFR (African American) 97 ML/MIN (>60)
[2023-01-29 13:59] LABS: Albumin Level 3.9 g/dl (3.5-5.0); Albumin/Globulin Ratio 1.2 (1.1-1.8); Anion Gap 13.1 mEq/L (5-15); Calcium 9.1 mg/dl (8.4-10.2); Carbon Dioxide 27 mmol/L (22.0-30.0); Globulin 3.2 g/dL (1.3-3.2); Glucose 121 mg/dl (74-100); Total Protein,Serum 7.1 g/dl (6.3-8.2)
[2023-01-29 14:04] LABS: C-Reactive Protein 78.6 mg/L (0-4)
[2023-01-29 14:28] LABS: Basophils % 0.2 % (0.1-2.0); Eosinophils % 0.3 % (0.1-12.0); Hematocrit 45.8 % (37.0-47.0); Hemoglobin 14.2 g/dL (12.2-16.2); Lymphocytes # 1.3 K/mm3 (0.7-4.5); Lymphocytes % 10.5 % (10-50); Mean Corpuscular HGB Conc 30.9 g/dL (31.8-35.4); Mean Corpuscular Hemoglobin 28.3 pg (27.0-31.2); Mean Corpuscular Volume 91.5 fl (81-99); Mean Platelet Volume 9.2 fl (7.4-10.4); Monocytes # 0.7 K/mm3 (0.1-1.0); Monocytes % 5.8 % (1.7-9.3); Neutrophils # 10.2 K/mm3 (1.8-7.8); Neutrophils % 83.1 % (37.0-80.0); Platelet Count 274 K/mm3 (142-424); Red Cell Distribution Width 14.9 % (11.5-17.5); White Blood Count 12.3 K/mm3 (4.8-10.8)
--- NOTE | 2023-01-29 14:35 | PC.NURSE ---
checked on pt nothing needed at this time
[2023-01-29 14:37] LABS: Erythrocyte Sedimentation Rate 21 mm/hr (0-30)
--- NOTE | 2023-01-29 14:50 | PC.NURSE ---
Dr Smith speaking with Dr Paredes
--- NOTE | 2023-01-29 14:53 | PC.NURSE ---
Paged Dr Norton per Dr Paredes request
--- NOTE | 2023-01-29 15:00 | PC.NURSE ---
ER at bedside
--- NOTE | 2023-01-29 15:02 | PC.NURSE ---
Dr Smith speaking with Dr Norton
--- NOTE | 2023-01-29 15:08 | PC.NURSE ---
call made to RAD for power share of images to [facility]
--- NOTE | 2023-01-29 15:17 | PC.NURSE ---
called RAD for disc of images
--- NOTE | 2023-01-29 15:20 | PC.NURSE ---
Dr Smith speaking with [facility] orth[facility]
[2023-01-29 15:30] VITALS: BP 119/61; PULSE 63; O2SAT 92
--- NOTE | 2023-01-29 15:34 | PC.NURSE ---
checked on pt nothin needed at this time , family at bs
[2023-01-29 16:00] VITALS: BP 123/65; PULSE 64; RESP 18; O2SAT 96
--- NOTE | 2023-01-29 16:02 | PC.NURSE ---
report called to bud at [facility] ED
[2023-01-29 16:37] VITALS: BP 119/61; PULSE 70; RESP 16; TEMP 36.7
== END 2023-01-29 16:40 | disposition short-term general hospital (02) ==
PROVIDERS: Emergency Provider Student in an Organized Health Care Education/Training Program; PCP Internal Medicine Adolescent Medicine
DX: T84.51XA Infection and inflammatory reaction due to internal right hip prosthesis, initial encounter (principal); Y83.1 Surgical operation with implant of artificial internal device as the cause of abnormal reaction of the patient, or of later complication, without mention of misadventure at the time of the procedure
CPT/HCPCS: 73502; 80053; 85025; 85651; 86140; 87040; 99285

== ENCOUNTER → 2023-02-27 16:19 | Outpatient (CLI) | payer MEDICARE, SELFPAY ==
[2023-02-27 17:53] LABS: Basophils # 0.1 K/mm3 (0-0.2); Eosinophils # 0.4 K/mm3 (0.0-0.4); Eosinophils % 5.4 % (0.1-12.0); Lymphocytes # 2.6 K/mm3 (0.7-4.5); Lymphocytes % 39.4 % (10-50); Mean Corpuscular HGB Conc 31.1 g/dL (31.8-35.4); Mean Corpuscular Hemoglobin 27.2 pg (27.0-31.2); Mean Corpuscular Volume 87.4 fl (81-99); Mean Platelet Volume 8.9 fl (7.4-10.4); Monocytes # 0.6 K/mm3 (0.1-1.0); Monocytes % 9.4 % (1.7-9.3); Neutrophils % 44.8 % (37.0-80.0); Platelet Count 338 K/mm3 (142-424); Red Blood Count 3.66 M/mm3 (4.20-5.40); White Blood Count 6.6 K/mm3 (4.8-10.8)
[2023-02-27 19:13] LABS: Alanine Aminotransferase 15 U/L (12-78); Albumin Level 3.7 g/dl (3.5-5.0); Albumin/Globulin Ratio 1.4 (1.1-1.8); Alkaline Phosphatase 119 U/L (38-126); Anion Gap 15.1 mEq/L (5-15); Aspartate Amino Transferase 23 U/L (14-36); Bilirubin,Total 0.2 mg/dl (0.2-1.3); Blood Urea Nitrogen 16 mg/dl (7-17); Carbon Dioxide 25 mmol/L (22.0-30.0); Chloride 103 mmol/L (98-107); Creatine Kinase 38 U/L (30-135); Estimated Glomerular Filt Rate 60 ml/min (>60); GFR (African American) 73 ML/MIN (>60); Globulin 2.7 g/dL (1.3-3.2); Glucose 88 mg/dl (74-100); Potassium 4.1 mmoL/L (3.5-5.1); Sodium 139 mmol/L (136-145); Total Protein,Serum 6.4 g/dl (6.3-8.2)
[2023-02-27 19:20] LABS: C-Reactive Protein 8.8 mg/L (0-4)
== END ==
DX: R01.0 Benign and innocent cardiac murmurs (principal)
CPT/HCPCS: 80053; 82550; 85025; 86140

== ENCOUNTER 2023-02-27 19:33 | Emergency (ER) | payer MEDICARE, SELFPAY ==
--- NOTE | 2023-02-27 19:27 | XR_ITS ---
PROCEDURE INFORMATION: Exam: XR Pelvis Exam date and time: 02/27/2023 7:33 PM Age: 78 years old Clinical indication: Hip pain; Prior surgery; Surgery date: 3-7 days post-operative; Surgery type: Left hip surgery in pulaski. ; Additional info: Left hip pain TECHNIQUE: Imaging protocol: Radiologic exam of the pelvis. Views: 1 or 2 view. COMPARISON: CR XR HIP LT 2-3V W/PELVIS 01/29/2023 1:02 PM FINDINGS: Bones/joints: Osteopenia. Status post left hip arthroplasty. There is dislocation of the left femoral prosthesis with the femoral head superior to the acetabulum. Small bone sliver adjacent to the superior acetabulum could represent a small fracture. Postoperative changes of the lower lumbar spine are redemonstrated. [id number] degenerative changes of the right hip. Soft tissues: Small nodular ossific density within the soft tissues below left hip joint, unchanged, presumed degenerative in nature. Organs: Calcifications at the mid pelvis are likely calcified uterine fibroids. IMPRESSION: Dislocation of the left femoral prosthesis with the femoral head superior to the acetabulum. Small bone sliver adjacent to the superior acetabulum could represent a small fracture.
--- NOTE | 2023-02-27 19:29 | HMH.EDGENADL ---
Discharge Plan Disposition Patient Disposition: Xfer Short-Term Hosp Prescriptions Prescriptions: No Action amlodipine 2.5 mg tablet 2.5 mg PO DAILY Label Comments: TAKE 1 TABLET BY MOUTH ONCE DAILY citalopram 20 mg tablet 20 mg PO DAILY Label Comments: TAKE 1 TABLET BY MOUTH ONCE DAILY flecainide 50 mg tablet 50 mg PO Q12 metoprolol succinate 25 mg tablet extended release 24 hr 25 mg PO DAILY Label Comments: TAKE 1 TABLET BY MOUTH ONCE DAILY Eliquis 5 mg tablet 5 mg PO BID polyethylene glycol 3350 [Miralax] 17 gram powder in packet 17 g PO DAILY atorvastatin 20 MG tablet 20 mg PO HS levothyroxine 125 MCG tablet 125 mcg PO DAILY cholecalciferol (vitamin D3) 50 MCG tablet 25 mcg PO DAILY cyanocobalamin (vitamin B-12) 5,000 MCG tablet,disintegrating 1,000 mcg PO DAILY Clinical Impressions Clinical Impression: Hip injury, Dislocation of left hip Stand Alone Forms Stand Alone Forms: Transfer Record - ED Discharge ED Provider: Albaro (ED),[facility] <Grge Llamas MD - Last Filed: 02/27/23 19:41> General Chief complaint: Extremity Injury, Lower Stated complaint: left hip pain Time Seen by Provider: 02/27/23 19:30 History of Present Illness HPI narrative: 78-year-old female status post left cemented hip hemiarthroplasty presents with left hip pain. She says that she had recent infection of the prosthetic hip joint and has been on antibiotics outpatient with the PICC line. Tonight she moved across the couch and pulled her hip so that it started to have shooting pain. She is not having pain with movement of the hip. Related Data Home Medications Medication Instructions Recorded Confirmed atorvastatin 20 mg tablet 20 mg PO HS Cholesterol 06/09/20 02/27/23 cholecalciferol (vitamin D3) 50 25 mcg PO DAILY Supplement 06/09/20 02/27/23 mcg (2,000 unit) tablet cyanocobalamin (vitamin B-12) 1,000 mcg PO DAILY Supplement 06/09/20 02/27/23 5,000 mcg disintegrating tablet levothyroxine 125 mcg tablet 125 mcg PO DAILY Thyroid 06/09/20 02/27/23 amlodipine 2.5 mg tablet 2.5 mg PO DAILY High blood pressure 11/28/22 02/27/23 apixaban 5 mg tablet (Eliquis) 5 mg PO BID Blood thinner - Afib 11/28/22 02/27/23 citalopram 20 mg tablet 20 mg PO DAILY Anxiety 11/28/22 02/27/23 flecainide 50 mg tablet 50 mg PO Q12 Heart rhythm 11/28/22 02/27/23 metoprolol succinate 25 mg 25 mg PO DAILY Heart rate control 11/28/22 02/27/23 tablet,extended release 24 hr polyethylene glycol 3350 17 gram 17 g PO DAILY constipation 01/29/23 02/27/23 oral powder packet (Miralax) Allergies Allergy/AdvReac Type Severity Reaction Status Date / Time diclofenac Allergy Intermediate Rash Verified 01/29/23 15:12 phenobarbital [PHENOBARBITAL] Allergy Unknown Verified 01/29/23 15:12 rivaroxaban [From Xarelto] Allergy Unknown Verified 01/29/23 15:12 Sulfa (Sulfonamide Allergy Unknown Verified 01/29/23 15:12 Antibiotics) [facility] <Greg Llamas MD - Last Filed: 02/27/23 19:41> [facility] Disclaimer: The information contained in this section may have been updated after the patient was seen, as this information can be updated by other users. Medical History GERD (gastroesophageal reflux disease) Osteoarthritis Osteoporosis Pacemaker Family History Other Afib Pacemaker Social History Smoking Status: Never smoker alcohol intake: never substance use type: denies use current occupational status: retired Travel in the last 8 weeks: None household members: spouse caffeine: No <Greg Llamas MD - Last Filed: 02/27/23 19:41> ROS Obtained: Yes All systems reviewed & no additional complaints except as documented Constitutional Constitutional: Denies fatigue Eyes Ey
[2023-02-27 19:33] VITALS: BP 164/86; PULSE 65; RESP 21; TEMP 36.6; O2SAT 98; BMI 22.3
--- NOTE | 2023-02-27 21:03 | PC.NURSE ---
images powershared to [facility]
--- NOTE | 2023-02-27 22:06 | PC.NURSE ---
speaking with [facility]
--- NOTE | 2023-02-27 22:12 | PC.NURSE ---
speaking with [facility] MD's Dr. Camilo and Dr. Bailey accepting patient at this time
--- NOTE | 2023-02-27 22:53 | PC.NURSE ---
Report called to Sherlyn CARSON at ER
[2023-02-27 22:54] VITALS: BP 112/54; PULSE 68; RESP 16; TEMP 36.6; O2SAT 96
== END 2023-02-27 22:56 | disposition short-term general hospital (02) ==
PROVIDERS: Emergency Provider Emergency Medicine; PCP Internal Medicine Adolescent Medicine
DX: T84.021A Dislocation of internal left hip prosthesis, initial encounter (principal); X50.1XXA Overexertion from prolonged static or awkward postures, initial encounter; M81.0 Age-related osteoporosis without current pathological fracture
CPT/HCPCS: 72170; 80053; 82550; 85025; 86140; 96374; 96375; 99285

== ENCOUNTER → 2023-03-09 10:41 | Outpatient (CLI) | payer MEDICARE, SELFPAY ==
[2023-03-09 12:36] LABS: Basophils # 0.1 K/mm3 (0-0.2); Basophils % 0.8 % (0.1-2.0); Eosinophils # 0.3 K/mm3 (0.0-0.4); Eosinophils % 4.2 % (0.1-12.0); Hematocrit 30.7 % (37.0-47.0); Hemoglobin 9.3 g/dL (12.2-16.2); Lymphocytes # 1.9 K/mm3 (0.7-4.5); Lymphocytes % 28.2 % (10-50); Mean Corpuscular HGB Conc 30.3 g/dL (31.8-35.4); Mean Corpuscular Hemoglobin 25.7 pg (27.0-31.2); Mean Platelet Volume 8.6 fl (7.4-10.4); Monocytes # 0.6 K/mm3 (0.1-1.0); Monocytes % 8.6 % (1.7-9.3); Neutrophils # 3.9 K/mm3 (1.8-7.8); Neutrophils % 58.1 % (37.0-80.0); Platelet Count 525 K/mm3 (142-424); Red Blood Count 3.61 M/mm3 (4.20-5.40); Red Cell Distribution Width 15.1 % (11.5-17.5); White Blood Count 6.6 K/mm3 (4.8-10.8)
[2023-03-09 13:32] LABS: Alanine Aminotransferase 18 U/L (12-78); Albumin Level 3.7 g/dl (3.5-5.0); Albumin/Globulin Ratio 1.4 (1.1-1.8); Alkaline Phosphatase 120 U/L (38-126); Anion Gap 13.9 mEq/L (5-15); Aspartate Amino Transferase 28 U/L (14-36); Bilirubin,Total 0.2 mg/dl (0.2-1.3); Blood Urea Nitrogen 15 mg/dl (7-17); Calcium 9.4 mg/dl (8.4-10.2); Carbon Dioxide 23 mmol/L (22.0-30.0); Chloride 107 mmol/L (98-107); Creatine Kinase 25 U/L (30-135); Estimated Glomerular Filt Rate 60 ml/min (>60); GFR (African American) 73 ML/MIN (>60); Globulin 2.7 g/dL (1.3-3.2); Glucose 73 mg/dl (74-100); Potassium 4.9 mmoL/L (3.5-5.1); Sodium 139 mmol/L (136-145); Total Protein,Serum 6.4 g/dl (6.3-8.2)
[2023-03-09 13:38] LABS: C-Reactive Protein 8.8 mg/L (0-4)
== END ==
PROVIDERS: PCP Internal Medicine Adolescent Medicine; Visit Provider Internal Medicine Adolescent Medicine
DX: D64.9 Anemia, unspecified; R79.82 Elevated C-reactive protein (CRP)
CPT/HCPCS: 80053; 82550; 85025; 86140

== ENCOUNTER 2023-09-05 08:49 | Outpatient (CLI) | payer MEDICARE, SELFPAY ==
--- NOTE | 2023-09-05 08:57 | XR_ITS ---
FINAL REPORT TECHNIQUE: Bone densitometry calculations of the lumbar spine and left hip were obtained. CLINICAL HISTORY: OSTEOSPOROSIS COMPARISON: 07/15/2022 FINDINGS: Using L1-4, the bone mineral density of the right forearm is 0.484 g/cm2, corresponding to T-score of -3.5. Using the left hip, the bone mineral density of the femoral neck is 0.549 g/cm2, corresponding to a T-score of -2.7. NOTE: T-score: Standard deviation compared with peak bone mass of young adult mean. *Following the recommendations of the International Society of Bone Densitometry, classification of hip BMD is based on the lower of two T-scores; total hip or femoral neck. IMPRESSION: Osteoporosis: Lowest T-score is at or below -2.5. This patient''s T-score meets the World Health Organization criteria for osteoporosis. Reviewed, Interpreted and Dictated by Felipe Hansen III, MD Transcribed by Soledad Strauss Authenticated and [facility]
== END 2023-09-05 23:59 ==
LOC: RAD 08:50
PROVIDERS: PCP Internal Medicine Adolescent Medicine; Visit Provider Internal Medicine Nephrology
DX: M81.0 Age-related osteoporosis without current pathological fracture (principal)
CPT/HCPCS: 77080

== ENCOUNTER 2023-10-03 13:23 | Outpatient (CLI) | payer MEDICARE, SELFPAY ==
[2023-10-03 14:58] LABS: Albumin Level 4.4 g/dl (3.5-5.0); Anion Gap 12.5 mEq/L (5-15); Blood Urea Nitrogen 15 mg/dl (7-17); Calcium 9.8 mg/dl (8.4-10.2); Carbon Dioxide 27 mmol/L (22.0-30.0); Chloride 105 mmol/L (98-107); Estimated Glomerular Filt Rate 48 ml/min (>60); GFR (African American) 58 ML/MIN (>60); Glucose 88 mg/dl (74-100); Potassium 4.5 mmoL/L (3.5-5.1); Sodium 140 mmol/L (136-145)
[2023-10-03 15:14] LABS: 25-OH Vitamin D, Total 48.2 ng/mL (30-100)
[2023-10-06 00:05] LABS: C-Telopeptide Serum 506 pg/mL (.)
[2023-10-06 03:37] LABS: Tandem-R Ostase 14.2 ug/L (.)
[2023-10-10 10:38] LABS: Serial Monitoring PDF SCANNED IMAGE
== END 2023-10-03 23:59 ==
LOC: LAB 13:25
PROVIDERS: PCP Internal Medicine Adolescent Medicine; Visit Provider Internal Medicine Nephrology
DX: M81.0 Age-related osteoporosis without current pathological fracture (principal)
CPT/HCPCS: 36415; 80069; 82306; 82523; 84080

== ENCOUNTER 2023-10-27 09:10 | Outpatient (POV) | payer MEDICARE, SELFPAY | END 2023-10-27 23:59 | disposition home or self-care (01) | LOC: SC 09:11 | PROVIDERS: Visit Provider Internal Medicine Nephrology | DX: Z00.00 Encounter for general adult medical examination without abnormal findings (principal) ==

== ENCOUNTER 2024-06-21 12:39 | Outpatient (CLI) | payer MEDICARE, SELFPAY ==
[2024-06-21 13:31] LABS: Albumin Level 4.1 g/dl (3.5-5.0); Blood Urea Nitrogen 17 mg/dl (7-17); Calcium 10.1 mg/dl (8.4-10.2); Carbon Dioxide 28 mmol/L (22.0-30.0); Chloride 107 mmol/L (98-107); Estimated Glomerular Filt Rate 53 ml/min (>60); GFR (African American) 64 ML/MIN (>60); Glucose 86 mg/dl (74-100); Phosphorous 4.3 mg/dl (2.5-4.5); Sodium 139 mmol/L (136-145)
[2024-06-21 13:39] LABS: Anion Gap 8.5 mEq/L (5-15); Potassium 4.5 mmoL/L (3.5-5.1)
[2024-06-21 13:48] LABS: 25-OH Vitamin D, Total 66.4 ng/mL (30-100)
[2024-06-24 15:30] LABS: Osteocalcin 26.3 ng/mL (5.0-29.5)
[2024-06-25 02:10] LABS: Tandem-R Ostase 15.9 ug/L (.)
[2024-06-30 23:25] LABS: C-Telopeptide Serum 291 pg/mL (.)
[2024-07-11 16:16] LABS: Serial Monitoring PDF SCANNED IMAGE
== END 2024-06-21 23:59 | disposition home or self-care (01) ==
LOC: LAB 12:40
PROVIDERS: PCP Internal Medicine Adolescent Medicine; Visit Provider Nurse Practitioner
DX: M81.0 Age-related osteoporosis without current pathological fracture (principal)
CPT/HCPCS: 36415; 80069; 82306; 82523; 83937; 84080

== ENCOUNTER 2024-08-30 10:13 | Outpatient (CLI) | payer MEDICARE, SELFPAY ==
--- NOTE | 2024-08-30 10:20 | XR_ITS ---
FINAL REPORT CLINICAL HISTORY: GERD, COUGH COMPARISON: 11/30/2022 FINDINGS: CHEST 2 VIEWS PA AND LATERAL The heart is in the upper limits of normal in size. Left subclavian pacer is identified. The mediastinum is unremarkable. There are mild chronic changes in the lung bases. There is no pneumothorax. IMPRESSION: No acute process. Reviewed, Interpreted and Dictated by Sriram Gonzalez MD Transcribed by Concetta Andrew Authenticated and [facility][1]
--- NOTE | 2024-08-30 10:20 | FL_ITS ---
FINAL REPORT CLINICAL HISTORY: GERD, cough FINDINGS: UPPER GI EXAM HISTORY: Gastroesophageal reflux disease PROCEDURE: The patient ingested barium. Effervescent crystals were also administered. 27 fluoroscopic spot films were obtained. FINDINGS: The esophagus is normal. There is no hiatal hernia. There is no gastroesophageal reflux. Peristalsis is normal. The rugal fold pattern of the stomach is normal. There is reflux of contrast into the common bile duct in this patient with known ERCP and stent placement. The duodenal bulb is normal. A 13 mm barium tablet passes through the esophagus and into the stomach without delay. Fluoro time: 3 minutes 32 seconds Radiation exposure in Reference air Kerma: 104.84 mGy. IMPRESSION: Small sliding-type hiatal hernia. Films reviewed, interpreted and dictated by Dr. Gonzalez. Transcribed by Jaquan Lopez PA-C. Reviewed, Interpreted and Dictated by Sriram Gonzalez MD Transcribed by MADIHA Marie Authenticated and . [facility]
[2024-08-30] MEDS: E-Z-GASII EFFERVESCENT GRANULES;1PK 1 EACH PO (11:10)
[2024-08-30] MEDS: BARIUM SULFATE(LIQUID E-Z-PAQUE);355ML BOTTLE 355 ML PO (11:10)
[2024-08-30] MEDS: BARIUM SULFATE (E-Z-HD 340GM);135ML BOTTLE 135 ML PO (11:10)
== END 2024-08-30 23:59 | disposition home or self-care (01) ==
LOC: RAD 10:14
PROVIDERS: PCP Internal Medicine Adolescent Medicine; Visit Provider Nurse Practitioner Family
DX: K21.9 Gastro-esophageal reflux disease without esophagitis (principal); R05.3 Chronic cough
CPT/HCPCS: 71046; 74246